=== PATIENT | female | born 1950 | race Caucasian/White ===

== ENCOUNTER → 2022-03-01 13:00 | Outpatient (BNVA) | payer MEDICARE, SELFPAY | PROVIDERS: PCP Internal Medicine; Visit Provider Psychiatry & Neurology Psychiatry | DX: F33.9 Major depressive disorder, recurrent, unspecified (principal); F41.1 Generalized anxiety disorder; F41.0 Panic disorder [episodic paroxysmal anxiety]; Z79.899 Other long term (current) drug therapy | CPT/HCPCS: 90833; 99212 ==

== ENCOUNTER 2022-08-23 11:08 | Outpatient (REF) | payer MEDICARE, SELFPAY ==
[2022-08-23 12:10] LABS: MANUAL DIFF FLAG NO
[2022-08-23 12:33] LABS: Basophils Absolute Auto 0.1 X10*3/uL (0.0-0.2); Basophils Percent Auto 1.1 % (0-2); Eosinophils Absolute Auto 0.6 X10*3/uL (0.0-0.4); Eosinophils Percent Auto 7.3 % (0-4); Hematocrit 40.4 % (37.0-47.0); Hemoglobin 13.3 g/dl (12.0-16.0); Imm Gran Abs Auto 0.04 X10*3/uL (0.00-0.03); Imm Gran Pct Auto 0.5 % (0.0-0.4); Lymphocytes Absolute Auto 1.8 X10*3/uL (1.2-4.9); Lymphocytes Percent Auto 22.1 % (20-40); Mean Corpuscular HGB Conc 32.9 g/dl (31.0-35.0); Mean Corpuscular Hemoglobin 29.1 pg (27.0-33.0); Mean Corpuscular Volume 88.4 fL (80.0-98.0); Monocytes Absolute Auto 0.7 X10*3/uL (0.1-1.2); Monocytes Percent Auto 8.2 % (2-11); Neutrophils Absolute Auto 4.8 x10*3/uL (2.0-8.3); Neutrophils Percent Auto 60.8 % (45-73); Platelet Count 248 X10*3/uL (160-400); Red Blood Count 4.57 X10*6/uL (4.20-5.50); Red Cell Distribution Width 14.3 % (11.0-16.0)
[2022-08-23 13:15] LABS: Iron 50 mcg/dL (30-160); Percent Iron Saturation 17 % (15-50); Total Iron Binding Capacity 290 mcg/dL (228-428); Unsaturated Iron Binding 240 ug/dL
[2022-08-23 13:44] LABS: Ferritin 45 ng/mL (10-250); Folate 10.5 ng/mL (> or = 4.0); Vitamin B12 620 pg/mL (200-900)
== END 2022-08-23 11:09 | disposition home or self-care (01) ==
LOC: HO.LAB 11:08
PROVIDERS: PCP Internal Medicine; Visit Provider Psychiatry & Neurology Psychiatry
DX: F32.4 Major depressive disorder, single episode, in partial remission (principal); F40.01 Agoraphobia with panic disorder; I10 Essential (primary) hypertension; J44.9 Chronic obstructive pulmonary disease, unspecified; D64.9 Anemia, unspecified
CPT/HCPCS: 36415; 82607; 82728; 82746; 83540; 84443; 85025; 90833; 99212

== ENCOUNTER → 2022-09-25 13:27 | Outpatient (BNVA) | payer MEDICARE, SELFPAY | PROVIDERS: PCP Internal Medicine; Visit Provider Psychiatry & Neurology Psychiatry | DX: I10 Essential (primary) hypertension (principal); J44.9 Chronic obstructive pulmonary disease, unspecified; F40.01 Agoraphobia with panic disorder; F32.4 Major depressive disorder, single episode, in partial remission; D64.9 Anemia, unspecified ==

== ENCOUNTER 2022-10-30 14:00 | Outpatient (AMB) | payer MEDICARE, SELFPAY ==
--- NOTE | 2022-10-30 14:14 | A.OFFPSYCH_ITS ---
Intake Vital Signs 10/30/22 15:03 BP 183/92 H Pulse 74 Intake Visit Reasons: depression Allergies No Known Allergies Allergy (Verified 09/25/22 13:43) Medication List - Last Reconciled 10/30/22 by Joe Chandler MD atorvastatin 20 mg PO DAILY budesonide-formoterol 160-4.5 mcg/actuation (Symbicort) 2 puffs inhalation buspirone 10 mg PO BID 90 days carvedilol 6.25 mg PO BID lisinopril 20 mg PO DAILY lorazepam 0.5 mg PO BID PRN sertraline 100 mg PO DAILY umeclidinium 62.5 mcg/actuation (Incruse Ellipta) 1 inh inhalation DAILY HPI- Psychiatric Chief Complaint: depression HPI Narrative: Patient seen in psychiatric follow-up. 72-year-old single female recently seen for worsening depression anxiety. BuSpar had been increased from 3 day to 20 mg twice a day L methyl folate added at 7.5 mg. Patient has been feeling somewhat better in spite of a recent fall. She has had pain over the last week or more has called her PCP who is seeing her in a couple of days. Did not go to urgent care has significant pain around her coccyx area. No unilateral weakness or feeling like she was blacking out. She has had some mild balance problems unclear if related to recent fall. Patient did recently celebrated the 40-year-old birthday of her niece she does feel only intermittently supported by her sister. No clear dizziness when standing up. The patient had been feeling significantly better doing daily walking less depressed S anxious after recent changes unable to increase Zoloft past 100 mg secondary to bruising Past Psychiatric History: Longstanding history of panic disorder generalized anxiety disorder and history of recurrent depression Has been more stable the past few years Mental Status Exam Mental Status Exam Narrative: Pain noted when sitting Patient Appearance: Well Grooomed Patient Orientation: Person, Place, Time and Situation Level of Consciousness: Awake and Appropriate Patient Behavior: Appropriate Mood Description: Apprehensive Affect Description: Appropriate and Constricted Patient Cognition Impaired: No Ability to Follow Directions: Good Speech Pattern: Clear Memory Description: Intact Hallucinations: None Delusions: Not Present Thought Process: Intact and Goal Oriented Thought Content: positive for Goal Oriented, positive for Preoccupation, negative for Suicidal Ideation or negative for Homicidal Ideation Depressive Symptoms: Increased Anxiety Judgement: Good Judgement and Insight: Somewhat discouraged by care at PCP encouraged to be an advocate for herself Assessment and Plan Assessment & Plan (1) Major depressive disorder in partial remission: Status: Acute Code(s): F32.4 - Major depressive disorder, single episode, in partial remission (2) Panic disorder with agoraphobia: Status: Acute Code(s): F40.01 - Agoraphobia with panic disorder Plan Patient has generally been doing well but did have a recent fall and had back pain was given a appointment for couple of weeks out and I encouraged the patient to get imaging did recommend urgent care here at [place] which does have radiology also offered to order films which I could send her PCP also discussed if she did have a spinal fracture there is acute treat from neuroradiology. Discussed lowering BuSpar which can at times contribute to balanced difficulty not noted with patient walking currently continue sertraline could start to switch to a different SSRI or SNRI given bruising Increase anxiety and pre panic increased discussed possibility of perhaps seeing therapist on more regular basis for period of time Medications: Changed From buspirone 20 mg (2 x 10 mg) PO BID 90 days 360 tabs 1RF To buspirone 10 mg PO BID 180 tabs 1RF 90 days Counseling and coordination of Care Pt. Self Management counseling: Behavior activation and Problem solving Details-Self Mgmt counseling: Discussion regarding self-care limitations of present healthcare model feelings of neglect Relaxation stress strategies Medication management counseling: Effectiveness and Side effects Diagnosis and Prognosis Counseling: Impact of diagnosis on life functions and Adequacy of current interventions Details: I spent [40] minutes reviewing the record, seeing the patient and documenting in the medical record. Counseling provided to the patient/caregiver as outlined below. Addressed patient/caregiver concerns regarding current medication regime including effective adherence. Addressed patient/caregiver concerns regarding diagnosis and prognosis including accuracy of diagnosis, prognosis over time, impact of diagnosis. Addressed patient/caregiver concerns regarding impact of recent stressors. 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
[2022-10-30 15:03] VITALS: BP 183/92; PULSE 74
== END 2022-10-30 17:08 | disposition home or self-care (01) ==
LOC: HO.HOP 14:01
PROVIDERS: PCP Internal Medicine; Visit Provider Psychiatry & Neurology Psychiatry
DX: F32.4 Major depressive disorder, single episode, in partial remission (principal); F40.01 Agoraphobia with panic disorder
CPT/HCPCS: 90833; 99213

== ENCOUNTER → 2022-10-30 14:00 | Outpatient (BNVA) | payer MEDICARE, SELFPAY | PROVIDERS: PCP Internal Medicine; Visit Provider Psychiatry & Neurology Psychiatry | DX: F32.4 Major depressive disorder, single episode, in partial remission (principal); F40.01 Agoraphobia with panic disorder | CPT/HCPCS: 90833; 99212 ==

== ENCOUNTER 2023-05-28 11:53 | Outpatient (AMB) | payer MEDICARE, SELFPAY ==
--- NOTE | 2023-05-28 12:56 | A.OFFPSYCH_ITS ---
Intake Intake Visit Reasons: depression Allergies No Known Allergies Allergy (Verified 09/25/22 13:43) Medication List - Last Reconciled 05/28/23 by Joe Chandler MD atorvastatin 20 mg PO DAILY budesonide-formoterol 160-4.5 mcg/actuation (Symbicort) 2 puffs inhalation buspirone 10 mg PO BID 90 days carvedilol 6.25 mg PO BID lisinopril 20 mg PO DAILY lorazepam 0.5 mg PO BID PRN lorazepam 0.5 mg PO BID PRN sertraline 100 mg PO DAILY umeclidinium 62.5 mcg/actuation (Incruse Ellipta) 1 inh inhalation DAILY HPI- Psychiatric Chief Complaint: depression HPI Narrative: Patient seen psychiatric follow-up has had an increase in anxiety dysphoria. Patient has been fed up with the medical system has felt unsupported by her primary care in different specialties. Did require recent wrist surgery after a fall. Has felt increasingly frustrated at times dealing with the healthcare system and feeling not supported by different offices and institutions. Mood generally okay has also felt not supported by her sister which was problematic and did not want to over burden her niece. No self-harming thoughts son may in crease in anxiety denies feeling balance issues related to BuSpar patient continues on sertraline BuSpar low-dose lorazepam Past Psychiatric History: Longstanding history of panic disorder generalized anxiety disorder and history of recurrent depression Has been more stable the past few years Mental Status Exam Mental Status Exam Narrative: Pain noted some dysphoria and irritability Patient Appearance: Well Grooomed Patient Orientation: Person, Place, Time and Situation Level of Consciousness: Awake and Appropriate Patient Behavior: Appropriate Mood Description: Apprehensive Affect Description: Constricted and Apprehensive Patient Cognition Impaired: No Ability to Follow Directions: Good Speech Pattern: Clear Memory Description: Intact Hallucinations: None Delusions: Not Present Thought Process: Intact and Goal Oriented Thought Content: positive for Goal Oriented, positive for Preoccupation, negative for Suicidal Ideation or negative for Homicidal Ideation Depressive Symptoms: Increased Anxiety Judgement: Good Judgement and Insight: Somewhat discouraged by care at PCP and different healthcare offices negotiating current healthcare system Assessment and Plan Assessment & Plan (1) Major depressive disorder in partial remission: Status: Acute Code(s): F32.4 - Major depressive disorder, single episode, in partial remission (2) Panic disorder with agoraphobia: Status: Acute Code(s): F40.01 - Agoraphobia with panic disorder Plan Patient does have depressive symptoms with irritability lot of this is situationally related had full with spinal injury number of months ago had other fall with a hand injury to left wrist that required surgery. Patient felt not supported by her sister not supported by her primary care. Discussed different strategies also discussed when she is going for PT working on balance and strengthening tissue to issues related to hand back. Discussed [facility] for help with diagnosis and pain management needs much reassurance empathic listening and support I did urge reconsideration of counseling however patient felt overwhelmed thought discuss she have to start over from beginning to deal with the help lindsay hanna current stressors and issues related to aging and family Counseling and coordination of Care Details-Self Mgmt counseling: Strategies related to current stressors including medical Details: I spent [45] minutes reviewing the record, seeing the patient and documenting in the medical record. Counseling provided to the patient/caregiver as outlined below. Addressed patient/caregiver concerns regarding current medication regime including effective adherence. Addressed patient/caregiver concerns regarding diagnosis and prognosis including accuracy of diagnosis, prognosis over time, impact of diagnosis. Addressed patient/caregiver concerns regarding impact of recent st ressors. 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
== END 2023-05-28 20:14 | disposition home or self-care (01) ==
LOC: HO.HOP 11:53
PROVIDERS: PCP Internal Medicine; Visit Provider Psychiatry & Neurology Psychiatry
DX: F32.4 Major depressive disorder, single episode, in partial remission (principal); F40.01 Agoraphobia with panic disorder
CPT/HCPCS: 90833; 99213

== ENCOUNTER → 2023-05-28 11:53 | Outpatient (BNVA) | payer MEDICARE, SELFPAY | PROVIDERS: PCP Internal Medicine; Visit Provider Psychiatry & Neurology Psychiatry | DX: F32.4 Major depressive disorder, single episode, in partial remission (principal); F40.01 Agoraphobia with panic disorder | CPT/HCPCS: 99212 ==

== ENCOUNTER 2023-09-03 11:55 | Outpatient (AMB) | payer MEDICARE, SELFPAY ==
--- NOTE | 2023-09-03 16:06 | A.OFFPSYCH_ITS ---
Intake Intake Visit Reasons: Depression Allergies No Known Allergies Allergy (Verified 09/25/22 13:43) HPI- Psychiatric Chief Complaint: Depression HPI Narrative: Patient having issues with chronic anxiety and dysphoria has felt disgusted by the medical system recent orthopedic issues that required surgery felt generally not supported. Some disquiet regarding a neighbor of hers who had recently patient has not wanted to go back and counseling has felt somewhat dependent on others but difficulty in long-term relationship with sister has not wanted to overly burden her niece has limited support system. Did have a good relationship with her prior therapist Dr. Oliveros has not wanted to as she sees it start over we have discussed use of supportive therapy not necessarily needing to go back to [facility] to take what she needs currently but she has been resistant to considering this. Past Psychiatric History: Longstanding history of panic disorder generalized anxiety disorder and history of recurrent depression Has been more stable the past few years Mental Status Exam Mental Status Exam Narrative: Has cast Patient Appearance: Well Grooomed Patient Orientation: Person, Place, Time and Situation Level of Consciousness: Awake and Appropriate Patient Behavior: Appropriate Mood Description: Constricted, Depressed and Apprehensive Affect Description: Constricted and Apprehensive Patient Cognition Impaired: No Ability to Follow Directions: Good Speech Pattern: Clear Memory Description: Intact Hallucinations: None Delusions: Not Present Thought Process: Intact and Goal Oriented Thought Content: positive for Goal Oriented, positive for Preoccupation, negative for Suicidal Ideation or negative for Homicidal Ideation Depressive Symptoms: Increased Anxiety, Increased Irritability and Loss of Int. in Activity Judgement: Fair Judgement and Insight: Somewhat discouraged by care at orthopedic some difficulty in asking for help Assessment and Plan Assessment & Plan (1) Major depressive disorder in partial remission: Status: Acute Code(s): F32.4 - Major depressive disorder, single episode, in partial remission (2) Panic disorder with agoraphobia: Status: Acute Code(s): F40.01 - Agoraphobia with panic disorder (3) Generalized anxiety disorder: Status: Acute Code(s): F41.1 - Generalized anxiety disorder Plan Patient might benefit from special education case manager if available through her system has been having more panic attacks continue lorazepam BuSpar sertraline discussed option mirtazapine did have increased ecchymosis at higher doses of sertraline would benefit from supportive counseling. Has been more anxious irritable not wanting to go to different appointments denies active self-harm basically overwhelmed at the current healthcare system and lack of support. Encourage telehealth therapy encourage online support groups Medications: Refilled lorazepam 0.5 mg PO BID PRN 30 tabs 1RF anxiety Counseling and coordination of Care Details-Self Mgmt counseling: Issues related to managing chronic anxiety healthcare system issues with family Medication management counseling: Effectiveness and Side effects Diagnosis and Prognosis Counseling: Adequacy of current interventions Details: I spent [38] minutes reviewing the record, seeing the patient and documenting in the medical record. Counseling provided to the patient/caregiver as outlined below. Addressed patient/caregiver concerns regarding current medication regime including effective adherence. Addressed patient/caregiver concerns regarding diagnosis and prognosis including accuracy of diagnosis, prognosis over time, impact of diagnosis. Addressed patient/caregiver concerns regarding impact of recent stressors. [facility] Medical History (Updated 10/28/23 @ 17:25 by Joe Chandler MD) Generalized anxiety disorder Major depressive disorder in partial remission Panic disorder with agoraphobia Pulmonary embolism Hypertension COPD (chronic obstructive pulmonary disease) Social History: sister and 1 brother mother depression anxiety niece TBI retired worked for [employer] Substance History: na Trauma History: unclear Coding Level of Care Code Est Pt Level 3 (28764) Therapy 30m w/E&M (48575) Diagnoses Major depressive disorder in partial remission F32.4 Panic disorder with agoraphobia F40.01 Generalized anxiety disorder F41.1
== END 2023-09-03 12:29 | disposition home or self-care (01) ==
LOC: HO.HOP 11:55
PROVIDERS: PCP Internal Medicine; Visit Provider Psychiatry & Neurology Psychiatry
DX: F32.4 Major depressive disorder, single episode, in partial remission (principal); F40.01 Agoraphobia with panic disorder; F41.1 Generalized anxiety disorder
CPT/HCPCS: 90833; 99213

== ENCOUNTER → 2023-09-03 11:55 | Outpatient (BNVA) | payer MEDICARE, SELFPAY | PROVIDERS: PCP Internal Medicine; Visit Provider Psychiatry & Neurology Psychiatry | DX: F32.4 Major depressive disorder, single episode, in partial remission (principal); F40.01 Agoraphobia with panic disorder; F41.1 Generalized anxiety disorder | CPT/HCPCS: 99212 ==

== ENCOUNTER 2023-11-22 10:29 | Outpatient (AMB) | payer MEDICARE, SELFPAY ==
--- NOTE | 2023-11-22 11:35 | A.OFFPSYCH_ITS ---
Intake Intake Visit Reasons: Depression Allergies No Known Allergies Allergy (Verified 09/25/22 13:43) Medication List - Last Reconciled 12/09/23 by Joe Chandler MD atorvastatin 20 mg PO DAILY budesonide-formoterol 160-4.5 mcg/actuation (Symbicort) 2 puffs inhalation buspirone 10 mg PO BID 90 days carvedilol 6.25 mg PO BID lisinopril 20 mg PO DAILY lorazepam 0.5 mg PO BID PRN lorazepam 0.5 mg PO BID PRN sertraline 100 mg PO DAILY umeclidinium 62.5 mcg/actuation (Incruse Ellipta) 1 inh inhalation DAILY HPI- Psychiatric Chief Complaint: Depression HPI Narrative: Patient seen in psychiatric follow-up has been dealing with some degree of chronic anxiety and dysphoria. Has been particularly alienated with sister and 1 of her nieces recently and particularly not wanting to burden a niece patient tends to ruminate and dysphoric Past Psychiatric History: Longstanding history of panic disorder generalized anxiety disorder and history of recurrent depression Has been more stable the past few years Assessment and Plan Assessment & Plan (1) Generalized anxiety disorder: Status: Acute Code(s): F41.1 - Generalized anxiety disorder (2) Major depressive disorder in partial remission: Status: Acute Code(s): F32.4 - Major depressive disorder, single episode, in partial remission (3) Panic disorder with agoraphobia: Status: Acute Code(s): F40.01 - Agoraphobia with panic disorder Plan Continue plan of care different treatment options offered patient did not wish to make any changes also discussed option of seeing someone given current stressors on a more regular basis for ongoing psychotherapy patient did not want referrals Counseling and coordination of Care Pt. Self Management counseling: Cognitive restructuring and General coping skills Medication management counseling: Effectiveness, Side effects and Dosing range Diagnosis and Prognosis Counseling: Adequacy of current interventions Details: I spent [38] minutes reviewing the record, seeing the patient and documenting in the medical record. Counseling provided to the patient/caregiver as outlined below. Addressed patient/caregiver concerns regarding current medication regime including effective adherence. Addressed patient/caregiver concerns regarding diagnosis and prognosis including accuracy of diagnosis, prognosis over time, impact of diagnosis. Addressed patient/caregiver concerns regarding impact of recent stressors. [facility] Medical History (Updated 10/28/23 @ 17:25 by Joe Chandler MD) Generalized anxiety disorder Major depressive disorder in partial remission Panic disorder with agoraphobia Pulmonary embolism Hypertension COPD (chronic obstructive pulmonary disease) Social History: sister and 1 brother mother depression anxiety niece TBI retired worked for [employer] Substance History: na Trauma History: unclear Coding Level of Care Code Est Pt Level 3 (47482) Therapy 30m w/E&M (70629) Diagnoses Generalized anxiety disorder F41.1 Major depressive disorder in partial remission F32.4 Panic disorder with agoraphobia F40.01
== END 2023-11-22 11:17 | disposition home or self-care (01) ==
LOC: HO.HOP 10:29
PROVIDERS: PCP Internal Medicine; Visit Provider Psychiatry & Neurology Psychiatry
DX: F41.1 Generalized anxiety disorder (principal); F32.4 Major depressive disorder, single episode, in partial remission; F40.01 Agoraphobia with panic disorder
CPT/HCPCS: 90833; 99213

== ENCOUNTER → 2023-11-22 10:29 | Outpatient (BNVA) | payer MEDICARE, SELFPAY | PROVIDERS: PCP Internal Medicine; Visit Provider Psychiatry & Neurology Psychiatry | DX: F41.1 Generalized anxiety disorder (principal); F32.4 Major depressive disorder, single episode, in partial remission; F40.01 Agoraphobia with panic disorder | CPT/HCPCS: 99212 ==

== ENCOUNTER 2024-01-24 11:00 | Outpatient (AMB) | payer MEDICARE, SELFPAY ==
--- NOTE | 2024-01-24 11:43 | MHC.OFFVISPS ---
Intake Intake Visit Reasons: depression Allergies No Known Allergies Allergy (Verified 09/25/22 13:43) HPI- Psychiatric Chief Complaint: depression Intake Note: HPI Narrative: Pt seen in f/u mood has been anxious somewhat ruminating PHQ-9 and ABIGAIL are not reliable patient more symptomatic Tends to ruminate regarding her sister and niece her sister is chronically anxious and dysphoric patient tends to be her sounding board. Past Psychiatric History: Longstanding history of panic disorder generalized anxiety disorder and history of recurrent depression Has been more stable the past few years Mental Status Exam Mental Status Exam Narrative: Has cast Patient Appearance: Well Grooomed Patient Orientation: Person, Place, Time and Situation Level of Consciousness: Awake and Appropriate Patient Behavior: Appropriate Mood Description: Anxious and Apprehensive Affect Description: Constricted and Apprehensive Patient Cognition Impaired: No Ability to Follow Directions: Good Speech Pattern: Clear Memory Description: Intact Hallucinations: None Delusions: Not Present Thought Process: Intact and Goal Oriented Thought Content: positive for Goal Oriented, positive for Preoccupation, negative for Suicidal Ideation or negative for Homicidal Ideation Depressive Symptoms: Increased Anxiety, Increased Irritability and Loss of Int. in Activity Judgement: Fair Judgement and Insight: Somewhat discouraged by care at orthopedic some difficulty in asking for help Assessment and Plan Assessment & Plan (1) Panic disorder with agoraphobia: Status: Acute Code(s): F40.01 - Agoraphobia with panic disorder (2) Major depressive disorder in partial remission: Status: Acute Code(s): F32.4 - Major depressive disorder, single episode, in partial remission (3) Generalized anxiety disorder: Status: Acute Code(s): F41.1 - Generalized anxiety disorder Plan Increase BuSpar to 15 b.i.d. for augmentation of sertraline warned regarding balance potential side effects hopefully will help with mood ruminations frequent preoccupations that interfere with quality of life did not wish to consider any other medication changes. Has lorazepam 0.5 b.i.d. he p.r.n. that she has taken often on Medications: Changed From buspirone 10 mg PO BID 90 days 180 tabs 1RF To buspirone 15 mg (1.5 x 10 mg) PO BID 270 tabs 1RF 90 days Counseling and coordination of Care Details-Self Mgmt counseling: Issues related to managing with family intrusive concerns balancing needs Medication management counseling: Effectiveness, Side effects and Dosing range Diagnosis and Prognosis Counseling: Problematic behaviors secondary to diagnosis and Adequacy of current interventions Details: I spent [30] minutes reviewing the record, seeing the patient and documenting in the medical record. Counseling provided to the patient/caregiver as outlined below. Addressed patient/caregiver concerns regarding current medication regime including effective adherence. Addressed patient/caregiver concerns regarding diagnosis and prognosis including accuracy of diagnosis, prognosis over time, impact of diagnosis. Addressed patient/caregiver concerns regarding impact of recent stressors. [facility] Medical History (Updated 10/28/23 @ 17:25 by Joe Chandler MD) Generalized anxiety disorder Major depressive disorder in partial remission Panic disorder with agoraphobia Pulmonary embolism Hypertension COPD (chronic obstructive pulmonary disease) Social History: sister and 1 brother mother depression anxiety niece TBI retired worked for [employer] (acquired by [employer] in 2014) Substance History: na Trauma History: unclear Coding Level of Care Code Est Pt Level 4 (63905) Diagnoses Panic disorder with agoraphobia F40.01 Major depressive disorder in partial remission F32.4 Generalized anxiety disorder F41.1
== END 2024-01-24 11:42 | disposition home or self-care (01) ==
LOC: HO.HOP 11:00
PROVIDERS: PCP Internal Medicine; Visit Provider Psychiatry & Neurology Psychiatry
DX: F40.01 Agoraphobia with panic disorder (principal); F32.4 Major depressive disorder, single episode, in partial remission; F41.1 Generalized anxiety disorder
CPT/HCPCS: 99214

== ENCOUNTER → 2024-01-24 11:00 | Outpatient (BNVA) | payer MEDICARE, SELFPAY | PROVIDERS: PCP Internal Medicine; Visit Provider Psychiatry & Neurology Psychiatry | DX: F40.01 Agoraphobia with panic disorder (principal); F32.4 Major depressive disorder, single episode, in partial remission; F41.1 Generalized anxiety disorder; Z71.89 Other specified counseling | CPT/HCPCS: 99212 ==

== ENCOUNTER 2024-02-28 10:52 | Outpatient (AMB) | payer MEDICARE, SELFPAY ==
--- NOTE | 2024-02-28 11:18 | A.OFFPSYCH_ITS ---
Intake Intake Visit Reasons: depression Allergies No Known Allergies Allergy (Verified 09/25/22 13:43) HPI- Psychiatric Chief Complaint: depression HPI Narrative: Pt seen in f/u mood seems more stable has chronic issues with her sister who feels under a dark cloud has had to decxrease buspirone secondary to gait instability. Patient basically doing okay. No new medical symptoms future oriented patient with some bruising . She remains on sertraline and BuSpar. Patient has been preoccupied with her sister Past Psychiatric History: Longstanding history of panic disorder generalized anxiety disorder and history of recurrent depression Has been more stable the past few years Mental Status Exam Mental Status Exam Patient Appearance: Well Grooomed Patient Orientation: Person, Place, Time and Situation Level of Consciousness: Awake and Appropriate Patient Behavior: Appropriate Mood Description: Apprehensive Affect Description: Apprehensive Patient Cognition Impaired: No Ability to Follow Directions: Good Speech Pattern: Clear Memory Description: Intact Hallucinations: None Delusions: Not Present Thought Process: Intact and Goal Oriented Thought Content: positive for Goal Oriented, positive for Preoccupation, negative for Suicidal Ideation or negative for Homicidal Ideation Depressive Symptoms: Increased Anxiety Judgement: Good Judgement and Insight: Able to discuss how to try and avoid being in emotional sponge for her sister's negative thinking Assessment and Plan Assessment & Plan (1) Generalized anxiety disorder: Status: Acute Code(s): F41.1 - Generalized anxiety disorder (2) Panic disorder with agoraphobia: Status: Acute Code(s): F40.01 - Agoraphobia with panic disorder (3) Major depressive disorder in partial remission: Status: Acute Code(s): F32.4 - Major depressive disorder, single episode, in partial remission Plan Patient is generally stable her anxiety seems in better control not overly depressed or anxious. Medically she seems more stable and BuSpar has been lowered to 10 mg twice a day at higher doses was causing increased bruising and gait disturbance. Dealing with boundary and chronic issues related to her niece and sister her sister tends to be quite negativistic and reactive and at times the patient can act as an emotional sponge discussed issues related to boundari es she did also review and discuss cognitive disorder workbook that she was given to review. Lorazepam is used occasionally 0.5 mg generally only once in the evening couple of times a week. Sertraline continues at 100 mg is not tolerate higher doses we have discussed switching anti depressants because of tolerability and bruising at higher doses but patient feels adequately maintained at this time. Follow-up 3 weeks Medications: Changed From buspirone 15 mg (1.5 x 10 mg) PO BID 90 days 270 tabs 1RF To buspirone 10 mg PO BID 180 tabs 1RF 90 days Counseling and coordination of Care Pt. Self Management counseling: Breathing Details-Self Mgmt counseling: Issues related to be family dealing with her sister niece issues related to boundaries becoming an emotional sponge for negativistic attitude/behavior Medication management counseling: Effectiveness, Side effects and Dosing range Diagnosis and Prognosis Counseling: Impact of diagnosis on life functions and Adequacy of current interventions Details: I spent [38] minutes reviewing the record, seeing the patient and documenting in the medical record. Counseling provided to the patient/caregiver as outlined below. Addressed patient/caregiver concerns regarding current medication regime including effective adherence. Addressed patient/caregiver concerns regarding diagnosis and prognosis including accuracy of diagnosis, prognosis over time, impact of diagnosis. Addressed patient/caregiver concerns regarding impact of recent stressors. 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
== END 2024-02-28 14:59 | disposition home or self-care (01) ==
LOC: HO.HOP 10:52
PROVIDERS: PCP Internal Medicine; Visit Provider Psychiatry & Neurology Psychiatry
DX: F41.1 Generalized anxiety disorder (principal); F40.01 Agoraphobia with panic disorder; F32.4 Major depressive disorder, single episode, in partial remission
CPT/HCPCS: 90833; 99213

== ENCOUNTER → 2024-02-28 10:52 | Outpatient (BNVA) | payer MEDICARE, SELFPAY | PROVIDERS: PCP Internal Medicine; Visit Provider Psychiatry & Neurology Psychiatry | DX: F41.1 Generalized anxiety disorder (principal); F40.01 Agoraphobia with panic disorder; F32.4 Major depressive disorder, single episode, in partial remission; Z71.89 Other specified counseling | CPT/HCPCS: 99212 ==

== ENCOUNTER 2024-06-03 13:14 | Outpatient (AMB) | payer MEDICARE, SELFPAY ==
--- NOTE | 2024-06-03 14:02 | A.OFFPSYCH_ITS ---
Intake Intake Visit Reasons: depression Allergies No Known Allergies Allergy (Verified 09/25/22 13:43) Medication List - Last Reconciled 06/03/24 by Joe Chandler MD atorvastatin 20 mg PO DAILY budesonide-formoterol 160-4.5 mcg/actuation (Symbicort) 2 puffs inhalation buspirone 10 mg PO BID 90 days carvedilol 6.25 mg PO BID lisinopril 20 mg PO DAILY lorazepam 0.5 mg PO BID PRN lorazepam 0.5 mg PO BID PRN sertraline 100 mg PO DAILY umeclidinium 62.5 mcg/actuation (Incruse Ellipta) 1 inh inhalation DAILY HPI- Psychiatric Chief Complaint: depression HPI Narrative: Patient seen psychiatric follow-up. Patient's mood somewhat anxious and ruminative at times. Tends to get overwhelmed at times with family stressors medical concerns. Has a somewhat limited support system does not want ask her knees her sister for help at times. Continues on sertraline and BuSpar we have discussed seeing therapist to help in manage anxiety difficulties but the patient has not wanted to do that. Feels relatively stable on sertraline and BuSpar Ativan at HS Past Psychiatric History: Longstanding history of panic disorder generalized anxiety disorder and history of recurrent depression Has been more stable the past few years Mental Status Exam Mental Status Exam Patient Appearance: Well Grooomed Patient Orientation: Person, Place, Time and Situation Level of Consciousness: Awake and Appropriate Patient Behavior: Appropriate Mood Description: Apprehensive Affect Description: Apprehensive Patient Cognition Impaired: No Ability to Follow Directions: Good Speech Pattern: Clear Memory Description: Intact Hallucinations: None Delusions: Not Present Thought Process: Intact and Goal Oriented Thought Content: positive for Goal Oriented, positive for Preoccupation, negative for Suicidal Ideation or negative for Homicidal Ideation Depressive Symptoms: Increased Anxiety Judgement: Good Judgement and Insight: Able to discuss how to try and avoid being in emotional sponge for her sister's negative thinking Assessment and Plan Assessment & Plan (1) Panic disorder with agoraphobia: Status: Acute Code(s): F40.01 - Agoraphobia with panic disorder (2) Major depressive disorder in partial remission: Status: Acute Code(s): F32.4 - Major depressive disorder, single episode, in partial remission (3) Generalized anxiety disorder: Status: Acute Code(s): F41.1 - Generalized anxiety disorder Plan Continue BuSpar and sertraline encourage relaxation skills encourage CBT skills Medications: Refilled buspirone 10 mg PO BID 180 tabs 1RF 90 days sertraline 100 mg PO DAILY 90 tabs 1RF Counseling and coordination of Care Pt. Self Management counseling: Breathing and Cognitive restructuring Diagnosis and Prognosis Counseling: Impact of diagnosis on life functions and Adequacy of current interventions Details-Diagnosis/Prognosis counseling: Patient feels comfortable on current regimen does not wish to explore alternatives Details: I spent [38] minutes reviewing the record, seeing the patient and documenting in the medical record. Counseling provided to the patient/caregiver as outlined below. Addressed patient/caregiver concerns regarding current medication regime including effective adherence. Addressed patient/caregiver concerns regarding diagnosis and prognosis including accuracy of diagnosis, prognosis over time, impact of diagnosis. Addressed patient/caregiver concerns regarding impact of recent stressors. 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
--- OUTSIDE RECORDS SUMMARY | 2024-06-03 14:22 | XMS_ITS | Clinical Summary ---
Author Organization [facility] Address [address] [place] [address] Care Team Providers Care Interior Assemblies Developer Prover Name Role Phone Cesar Grimes MD Primary Care Provider [phone] Allergies No known active allergies Medications Medication Sig Dispensed Refills Start Date End Date Status lansoprazole (PREVACID) 15 MG capsule Take 15 mg by mouth daily. 0 Active sertraline (ZOLOFT) 100 MG tablet Take 100 mg by mouth daily. 0 Active albuterol 108 (90 Base) MCG/ACT inhaler Inhale 2 puffs into the lungs every 6 (six) hours as needed. 0 Active LORazepam (ATIVAN) 0.5 MG tablet Take 0.5 mg by mouth every 6 (six) hours as needed. 0 Active busPIRone (BUSPAR) 10 MG tablet Take 10 mg by mouth 3 (three) times a day. 0 Active lisinopril (PRINIVIL,ZESTRIL) tablet 10 mg Take 10 mg by mouth daily. 0 Active budesonide-formotero l (SYMBICORT) 160-4.5 MCG/ACT inhaler Inhale 2 inhalations into the lungs 2 (two) times a day. 0 Active Umeclidinium [place] 62.5 MCG/INH AEPB Inhale into the lungs. 0 Active carvedilol (COREG) 6.25 MG tablet Take by mouth 2 (two) times a day with meals. 0 Active Active Problems No known active problems Family History Medical History Relation Name Comments Hypertension Brother Cancer Father Throat Cancer Cancer Mother Colon Cancer Cancer Paternal Aunt Breast Cancer Heart disease Sister Hypertension Sister Relation Name Status Comments Brother Alive Father (Age 90) Complicati ons from fall Mother (Age 66) Passed fro m the Cancer Paternal Aunt (Age 60) Breast Ca ncer Sister Alive Social History Tobacco Use Types Packs/Day Years Used Date Smoking Tobacco: Never Smokeless Tobacco: Never Alcohol Use Standard Drinks/Week Comments Never 0 (1 standard drink = 0.6 oz pur e alcohol) Sex and Gender Information Value Date Recorded Sex Assigned at Not on file Gender Identity Not on file Sexual Orientation Not on file Job Start Date Occupation Industry Not on file Not on file Not on file Last Filed Vital Signs Vital Sign Reading Time Taken Comments Blood Pressure 155/74 08/06/2020 11:07 AM EDT Pulse 90 08/06/2020 11:07 AM EDT Temperature 36.4 ??C (97.6 ??F) 08/06/2020 11:07 AM E DT Respiratory Rate - - Oxygen Saturation 98% 08/06/2020 11:07 AM EDT Inhaled Oxygen Concentration - - Weight 73.5 kg (162 lb) 08/06/2020 11:07 AM EDT Height 154.9 cm (5' 1 ) 08/06/2020 11:07 AM EDT Body Mass Index 30.61 08/06/2020 11:07 AM EDT Plan of Treatment Health Maintenance Due Date Last Done Comments Hepatitis C Screening 1950 COVID-19 Vaccine (#1) 02/14/1951 Depression Screening 1960 Preventative Health Evaluation 1966 Colon Cancer Screening (Colonoscopy) 1993 Shingrix-Zoster Vaccine (1 o f 2) 1998 Fall Risk Assessment 2013 Osteoporosis Screening (DEXA Scan) 2013 Pneumococcal Vaccine (2 of 2 - PCV) 2013 07/12/2011 RSV Adult > 60+ Yrs or (1 - 1-dose 75+ series) 08/16/2023 DTap / Tdap / Td (3 - Td or Tdap) 08/20/2023 08/19/2013, 11/16/2012 Influenza Vaccine (#1) 2023 Hepatitis B Vaccines Aged Out No long er eligible based on patient's age to complete this topic RSV Ped < 20 months Aged Out No longe r eligible based on patient's age to complete this topic Care Teams Interior Assemblies Developer Prover Relationship Specialty Start Date End Date Cesar Grimes MD [address] [facility] [address] [place] [address] PCP - General Gastroenterology 07/20/20
--- OUTSIDE RECORDS SUMMARY | 2024-06-03 14:22 | XMS_ITS ---
Care Plan - [facility] Created on: June 03, 2024 Jayda Montesinos : 1950 Sex: Female Author Organization [facility] Address [address] [place] [address] Phone Care Team Providers Care Cane Feeder Name Role Phone Calli SERRA, Elvira Primary Care Provider [phone] [facility] Unavailable [phone]
--- OUTSIDE RECORDS SUMMARY | 2024-06-03 14:22 | XMS_ITS | Clinical Summary ---
Author Organization 175 [facility] Address [address] [place] [address] Phone Care Team Providers Care Flexible Machining System Machinist Name Role Phone Elvira Mccurdy MD Primary Care Provider [phone] Allergies No known active allergies Medications levomefolate calcium (L-METHYLFOLATE ORAL) L-Methylfola te-Methylcob alamin 15-2 MG Cap Take by mouth. 11/02/2022 Active albuterol HFA (PROAIR HFA ; PROVENTIL HFA ; VENTOLIN HFA) 90 mcg/actuation inhaler Inhale 2 Puffs into the lungs every 6 hours as needed for Cough or Wheezing. 09/01/2019 Active atorvastatin (LIPITOR) 20 mg tablet TAKE 1 TABLET BY MOUTH EVERY DAY 06/13/2023 Active busPIRone (BUSPAR) 10 mg tablet Take 1 Tablet by mouth 2 times daily. 2 tabs in the morning & 1 tab in the evening 11/02/2022 Active carvediloL (COREG) 6.25 mg tablet TAKE 1 TABLET BY MOUTH EVERY 12 HOURS 02/03/2024 Active fluticasone-ume clidinium-vilan terol (Trelegy Ellipta) 100-62.5-25 mcg inhaler Inhale into the lungs. 11/02/2022 Active lansoprazole (PREVACID) [address] capsule Take 1 Cap by mouth every morning (before breakfast). Active lisinopriL (PRINIVIL,ZESTR IL) 30 mg tablet Take 1 Tablet by mouth daily. 09/26/2023 Active LORazepam (ATIVAN) 0.5 mg tablet 1 Tablet 2 times daily. PRN 11/13/2014 Active sertraline (ZOLOFT) 100 mg tablet 100 mg daily. 05/20/2013 Active amLODIPine (NORVASC) 5 mg tablet TAKE 1 TABLET BY MOUTH EVERY DAY 90 tablet 2 04/21/2024 Active Active Problems Problem Noted Date Diagnosed Date Left wrist fracture, sequela 05/05/2023 Closed fracture of left distal radius 03/29/2023 Shortness of breath 09/26/2021 Overview (02/27/2024): Last Assessment & Plan: Patient reports fatigue and exertional shortness of breath. We will repeat an exercise nuclear stress test to assess for any evidence of ischemia. I will notify her of results when available. She also has COPD which could be causing the symptoms. Systolic heart failure 05/06/2020 Overview (02/27/2024): Last Assessment & Plan: Patient with recent echocardiogram 08/04/20 and recovered LVEF. Continue with Coreg and lisinopril as prescribed. She is euvolemic on exam. I have reviewed with the patient to call if she develops worsening symptoms of heart failure such as increased shortness of breath, new or worsening cough, increased swelling, or weight gain of more than 2 lbs in one day or 4 lbs in one week. We will repeat an echocardiogram in 6 months to asses her heart function and valve disease. Stevenson's esophagus 08/06/2017 Hypercholesterolemia 08/06/2017 Overview (02/27/2024): Last Assessment & Plan: Last LDL 53. Continue atorvastatin. Hypertension 08/06/2017 Overview (02/27/2024): Last Assessment & Plan: Her blood pressure was elevated in the office today and upon recheck, however she reports she did not take her medications this am. Tolerating present therapies. Continue lisinopril and carvedilol. She has a blood pressure cuff at home and will take her blood pressure a few times this week 2 hrs after taking her medications and let us know if her BP stays >140/90. I discussed the importance of heart healthy lifestyle including low salt low fat diet, maintaining healthy weight, regular exercise, and not smoking. Anxiety 09/08/2016 COPD (chronic obstructive pulmonary disease) Hyperparathyroidism 08/31/2016 Benign paroxysmal positional vertigo 11/27/2014 Allergic rhinitis 08/28/2014 GERD (gastroesophageal reflux disease) 5 Actinic keratosis 12/11/2013 Adrenal adenoma 11/18/2013 Alopecia 09/02/2012 Insomnia 04/24/2012 Meralgia paresthetica 11/01/2010 Encounters Date Type Department Care Team Description 04/02/2024 9:00 AM EST Office Visit Internal Medicine - [facility] [address] [place] [address] Elvira Mccurdy MD Primary hypertension (Primary Dx); Screening for colorectal cancer; Chronic systolic heart failure (CMS/HCC); Hypercholesterolemia; Chronic obstructive pulmonary disease, unspecified COPD type (CMS/HCC) from Last 3 Months Immunizations Name Administration Dates Next Due DTaP (Infanrix) 6wks to less than 7yo 08/19/2013 Influenza, Unspecified 01/20/2021 Pneumococcal polysaccharide 23 valent (Pneumovax 23) 2yo and older 07/12/2011 Tdap Tetanus diptheria acell ular pertussis (Boostrix; Adacel) 7yo and older 11/16/2012 Surgical History Surgery Date Site/Laterality Comments OTHER SURGICAL HISTORY PROCEDURE: HISTORY OTHER; COMMENT: Renny fundoplication COLONOSCOPY 07/07/2008 PROCEDURE: HISTORICAL COLONOSCOPY; COMMENT: Diverticulosis. Repeat 10 yrs UPPER GASTROINTESTINAL ENDOSCOPY 01/28/2015 PROCEDURE: UT UPPER GI ENDOSCOPY PERFORMED; COMMENT: Stevenson's mucosa w/ focal intestinal metaplasia negative for dysplasia, Rpt 3 yrs Medical History Medical History Date Comments History of pulmonary embolus (PE) 08/06/2017 DX:History of pulmonary embolus (PE) Actinic keratosis 12/11/2013 DX:Actinic ker atosis Adrenal adenoma 11/18/2013 DX:Adrenal adeno ma Allergic rhinitis 08/28/2014 DX:Allergic rh initis Alopecia 09/02/2012 DX:Alopecia Anxiety 09/08/2016 DX:Anxiety Stevenson's esophagus 08/06/2017 DX:Stevenson's esophagus Benign paroxysmal positional vertigo 11/27/2014 DX:Benign paroxysmal positional vertigo GERD (gastroesophageal reflux disease) 05/29/2014 DX:GERD (gastroesophageal reflux disease) Hypercholesterolemia 08/06/2017 DX:Hypercho lesterolemia Hyperparathyroidism (CMS/HCC) 08/31/2016 DX :Hyperparathyroidism ([facility]) Hypertension 08/06/2017 DX:Hypertension Insomnia 04/24/2012 DX:Insomnia Meralgia paresthetica 11/01/2010 DX:Meralgi a paresthetica COPD (chronic obstructive pu lmonary disease) ([facility]) 09/08/2016 DX:COPD (chronic obstructive pulmonary disease) ([facility]) Family History Medical History Relation Name Comments Hypertension Brother Colon cancer Mother Heart attack Mother Coronary artery disease Sister Hypertension Sister Relation Name Status Comments Brother Mother Sister Social History Tobacco Use Types Packs/Day Years Used Date Smoking Tobacco: Never Smokeless Tobacco: Never Alcohol Use Standard Drinks/Week Comments No 0 (1 standard drink = 0.6 oz pur e alcohol) Comments Unknown Sex and Gender Information Value Date Recorded Sex Assigned at Not on file Legal Sex Female 4:11 AM EST Gender Identity Not on file Sexual Orientation Not on file Obstetrics History Last Filed Vital Signs Vital Sign Reading Time Taken Comments Blood Pressure 122/80 04/02/2024 9:08 AM EST Pulse 96 04/02/2024 9:08 AM EST Temperature 36.4 ??C (97.5 ??F) 04/02/2024 9:08 AM ES T Respiratory Rate - - Oxygen Saturation 96% 04/02/2024 9:08 AM EST Inhaled Oxygen Concentration - - Weight 74 kg (163 lb 3.2 oz) 04/02/2024 9:08 AM EST Height 152.4 cm (5') 04/02/2024 9:08 AM EST Body Mass Index 31.87 04/02/2024 9:08 AM EST Plan of Treatment Upcoming Encounters Date Type Department Care Team (Late st Contact Info) Description 08/26/2024 8:20 AM EDT Office Visit [facility] [address] [phone] Gregory Acosta MD [address] [address] 08/27/2024 9:30 AM EDT Appointment [facility] [address] [place] [phone] Cesar Grimes MD [address] [address] 10/02/2024 8:30 AM EDT Office Visit Internal Medicine - [facility] [address] [phone] Elvira Mccurdy MD [address] [address] Health Maintenance Due Date Last Done Comments Zoster Vaccines (1 of 2) 08/16/1967 DTaP,Tdap,and Td Vaccines (3 - Td or Tdap) 02/18/2014 08/19/2013, 11/16/2012 Pneumococcal Vaccine: 50+ Years (3 of 3 - PPSV23, PCV20 or PCV21) 03/20/2018 01/23/2018, 07/12/2011 COVID-19 Vaccine (2 - Pfizer risk series) 07/18/2020 06/27/2020 Hepatitis C Screening 04/01/2022 Osteoporosis Screening (Bone Density Screening) 04/01/2022 Social Influencers of Health Screening 04/01/2022 RSV Immunization Patients 60+ Years Old (1 - 1-dose 75+ series) 08/16/2023 Colorectal Cancer Screening: Colonoscopy 09/25/2023 09/24/2018 Influenza Vaccine (#1) 2023 , 02/04/2020, 04/30/2019, Additional history exists Depression Screening 09/25/2024 09/26/2023 Falls Risk Assessment 09/25/2024 09/26/2023 Medicare Annual Wellness Visit 09/25/2024 09/26/2023 Hypertension/CHF/CAD Annual BMP Blood Test 04/02/2025 04/02/2024, 09/27/2023, 09/27/2023 Cholesterol Screening (Lipid Panel) 04/02/2029 04/02/2024, 09/27/2023, 09/27/2023 HIB Vaccines Aged Out No longer eligi ble based on patient's age to complete this topic HPV Vaccines Aged Out No longer eligi ble based on patient's age to complete this topic Hepatitis A Vaccines Aged Out No long er eligible based on patient's age to complete this topic Hepatitis B Vaccines Aged Out No long er eligible based on patient's age to complete this topic IPV Vaccines Aged Out No longer eligi ble based on patient's age to complete this topic MMR Vaccines Aged Out No longer eligi ble based on patient's age to complete this topic Meningococcal ACWY Vaccine Aged Out N o longer eligible based on patient's age to complete this topic Meningococcal B Vacine Aged Out No lo nger eligible based on patient's age to complete this topic RSV Immunization Patients Under 20 months Aged Out No longer eligible based on patient's age to complete this topic Varicella Vaccines Aged Out No longer eligible based on patient's age to complete this topic Procedures Procedure Name Priority Date/Time Associated Diagnosis Comments COMPREHENSIVE METABOLIC PANEL Routine 04/02/2024 9:47 AM EST Screening for colorectal cancer Chronic systolic heart failure (CMS/HCC) Hypercholesterolemia Primary hypertension LIPID PANEL WITH REFLEX TO DIRECT LDL Routine 04/02/2024 9:47 AM EST Screening for colorectal cancer Chronic systolic heart failure (CMS/HCC) Hypercholesterolemia Primary hypertension DEPRESSION SCREENING Routine 09/26/2023 FALLS RISK ASSESSMENT Routine 09/26/2023 COLONOSCOPY Routine 09/24/2018 from Last 3 Months or Most Recently Relevant to Health Maintenance Results * Lipid panel with reflex to direct LDL (04/02/2024 9:47 AM EST) Cholesterol 155 0 - 200 mg/dL LAB CHEMISTRY METHOD 04/02/2024 3:10 PM EST [facility] Triglycerides 107 0 - 150 mg/dL LAB CHEMISTRY METHOD 04/02/2024 3:10 PM EST [facility] HDL 73 >=40 mg/dL LAB CHEMISTRY METHOD 04/02/2024 3:10 PM EST [facility] LDL Calculated 61 0 - 100 mg/dL LAB CHEMISTRY METHOD 04/02/2024 3:10 PM EST [facility] VLDL Cholesterol Bi 21.4 mg/dL LAB CHEMISTRY METHOD 04/02/2024 3:10 PM EST [facility] Non HDL Chol. (LDL+VLDL) 82 <145 mg/dL LAB CHEMISTRY METHOD 04/02/2024 3:10 PM EST [facility] Chol/HDL Ratio 2.1 0.0 - 4.4 LAB CHEMISTRY METHOD 04/02/2024 3:10 PM [facility] Blood Venous blood specimen / Unknown Venipuncture / Unknown 04/02/2024 9:47 AM EST 04/02/2024 9:47 AM EST us Elvira Mccurdy MD LAB BLOOD ORDERABLES Final Res ult [facility] [address] [place] [address], [place] [phone] * (ABNORMAL) Comprehensive metabolic panel (04/02/2024 9:47 AM EST) Sodium 139 133 - 145 mmol/L LAB CHEMISTRY METHOD 04/02/2024 3:16 PM [facility] Potassium 4.4 3.5 - 5.5 mmol/L LAB CHEMISTRY METHOD 04/02/2024 3:16 PM [facility] Chloride 107 96 - 110 mmol/L LAB CHEMISTRY METHOD 04/02/2024 3:16 PM [facility] CO2 26 21 - 32 mmol/L LAB CHEMISTRY METHOD 04/02/2024 3:16 PM [facility] Anion Gap 6 3 - 11 LAB CHEMISTRY METHOD 04/02/2024 3:16 PM [facility] Glucose 86 70 - 100 mg/dL LAB CHEMISTRY METHOD 04/02/2024 3:16 PM [facility] BUN 16 5 - 25 mg/dL LAB CHEMISTRY METHOD 04/02/2024 3:16 PM [facility] Creatinine 0.92 0.50 - 1.10 mg/dL LAB CHEMISTRY METHOD 04/02/2024 3:16 PM [facility] eGFR 65 >=60 mL/min/1. 73m2 LAB CHEMISTRY METHOD 04/02/2024 3:16 PM [facility] Comment:Calculation based on the??Chronic Kidney Disease Epidemiology Collaboration (CKD-EPI) equation refit??without adjustment for race. BUN/Creatinine Ratio 17.4 LAB CHEMISTRY METHOD 04/02/2024 3:16 PM [facility] Calcium 9.6 8.5 - 10.5 mg/dL LAB CHEMISTRY METHOD 04/02/2024 3:16 PM [facility] AST (SGOT) 19 10 - 42 unit/L LAB CHEMISTRY METHOD 04/02/2024 3:16 PM [facility] ALT (SGPT) 30 10 - 60 unit/L LAB CHEMISTRY METHOD 04/02/2024 3:16 PM [facility] Alkaline Phosphatase 157(H) 42 - 121 unit/L LAB CHEMISTRY METHOD 04/02/2024 3:16 PM [facility] Total Protein 7.2 6.0 - 8.0 g/dL LAB CHEMISTRY METHOD 04/02/2024 3:16 PM [facility] Albumin 4.0 3.2 - 5.0 g/dL LAB CHEMISTRY METHOD 04/02/2024 3:16 PM [facility] Total Bilirubin 0.6 0.0 - 1.4 mg/dL LAB CHEMISTRY METHOD 04/02/2024 3:16 PM [facility] Blood Venous blood specimen / Unknown Venipuncture / Unknown 04/02/2024 9:47 AM EST 04/02/2024 9:47 AM EST us Elvira Mccurdy MD LAB BLOOD ORDERABLES Final Res ult [facility] [address] [place], [place] [address] [phone] * Falls Risk Assessment (09/26/2023) Falls Risk Assessment Abstracted Historical Provider HEALTH MAINTENANCE Final Result * Depression Screening (09/26/2023) HM Depression Screening Abstracted Historical Provider HEALTH MAINTENANCE Final Result * Colonoscopy (09/24/2018) Colonoscopy No Interpretation , Abstracted Anatomical Region Laterality Modality Other Historical Provider HEALTH MAINTENANCE Final Result from Last 3 Months or Most Recently Relevant to Health Maintenance Insurance [facility]IC[facility] Care Teams Flexible Machining System Machinist Relationship Specialty Start Date End Date Elvira Mccurdy MD [address] [phone] PCP - General Internal Medicine 07/04/21
--- OUTSIDE RECORDS SUMMARY | 2024-06-03 14:22 | XMS_ITS ---
Author Organization [facility] Address [address] [place] [address] Phone Care Team Providers Care Mobile Marketing Specialist Name Role Phone Calli SERRA, Elvira Primary Care Provider [phone] [facility] Unavailable [phone] Plan of Treatment No Plan of Treatment Recorded Assessments Includes: Assessments for all patient encounters No Assessments Recorded Medical Equipment - Implanted Devices Includes: Current and historical Devices No Medical Equipment Recorded Medications Administered Includes: Administered Medications in patient's chart No Administered Medications Recorded Results Includes: Results from 06/03/2023 through 06/03/2024 No Results Recorded For Specified Dates History of Present Illness History of Present Illness not supported for this document type No History of Present Illness Recorded Social History No Social History Recorded - Smoking Status Unknown Medical History Includes: Medical History in patient's chart No Medical History Recorded Family History Includes: Family History in patient's chart No Family History Recorded Review of Systems Review of Systems not supported for this document type No Review of Systems Recorded Mental Status No Mental Status Recorded Functional Status No Functional Status Recorded Physical Exam Physical Exam not supported for this document type No Physical Exam Recorded Insurance Includes: Active Insurance Policies Plan Name Member ID Group # Subscriber Relationship Effect albert Dates 1 - Medicare Part B [facility] [id number] Jayda Montesinos Self 2 - [employer] [id number] Jayda Juarez Clinical Notes Includes: Signed Clinical Notes starting from 04/02/2022 No Clinical Notes Recorded
--- OUTSIDE RECORDS SUMMARY | 2024-06-03 14:22 | XMS_ITS | Clinical Summary ---
Author Organization [facility] Address [address] [place] [address] Phone Care Team Providers Care Dinkey Driver Name Role Phone Calli SERRA, Elvira Primary Care Provider [phone] [facility] [phone] Reason for Visit and Chief Complaint Medicare New Patient Plan of Treatment No Plan of Treatment Recorded Assessments Includes: Assessments from this encounter No Assessments Recorded Medical Equipment - Implanted Devices Includes: Current Devices No Medical Equipment Recorded Medications Administered Includes: Administered Medications from this encounter No Administered Medications Recorded Vital Signs Includes: Vital Signs from this encounter Vital Name 03/26/2023 08:47A Blood Pressure Sitting (mmHg) 159/92 Pulse Rate-Sitting (bpm) 68 Temp-Temporal 97 Height (in) 60 Weight (lb) 175 Body Mass Index 34.2 Body Surface Area 1.8 Oxygen Saturation (%) 97 Last Documented: On 03/26/2023 8:48AM ; [facility] Results Includes: Results discussed during this encounter No Results Recorded For Specified Dates History of Present Illness Includes: History of Present Illness from this encounter No History of Present Illness Recorded Social History No Social History Recorded - Smoking Status Unknown Medical History Includes: Medical History addressed during this encounter No Medical History Recorded Family History Includes: Family History addressed during this encounter No Family History Recorded Review of Systems Includes: Review of Systems from this encounter No Review of Systems Recorded Mental Status Includes: Mental Status from this encounter No Mental Status Recorded Functional Status Includes: Functional Status from this encounter No Functional Status Recorded Physical Exam Includes: Physical Exam from this encounter Encounters Encounter Provider Location Date Check-In Time Check-Out Time Diagnosis Medicare New Patient Wally Tate MD [facility] 03/26/20 8:40AM 9:16AM Insurance Includes: Active Insurance Policies Plan Name Member ID Group # Subscriber Relationship Effect albert Dates 1 - Medicare Part B of [place] [id number] Jayda Montesinos Self 2 - [employer] [id number] Jayda Montesinos Self Clinical Notes Includes: Clinical Notes from this encounter * Progress note Date Encounter Last Documented by 03/26/2023 Medicare New Patient Last docume nted on 03/26/2023; 11:39 AM, Wally Tate MD; [facility], Chief Complaint CC: Left distal radius fracture DOI: 03/16/2023 Junior: Slip on wet surface with dog leash HPI: Extremely pleasant 72-year-old [id number] female Non-smoker nondiabetic minimal: Medical comorbidities Mechanical fall Evaluated [facility] ER Imaging studies performed patient placed in sugar-tong splint Patient presents today in clinic X-rays performed Distal radius fracture slight intra-articular comminution significant dorsal angulation of approximately 20 degrees nondisplaced but impacted Physical exam alert oriented nondistressed extremely pleasant 72-year-old female. Examination of her left wrist. Swelling moderate no blistering tenting. Median radial ulnar motor and sensory nerves intact ecchymosis moderate. No tenderness over the radial head excellent motion MCP PIP DIP. Reduction/plan 72-year-old [id number] female left distal radius fracture intra-articular with fairly significant dorsal angulation. Treatment options explained with patient Second opinion Dr. Dina Couch [facility] hand surgery . HILLARY Tate MD Physical Findings - Vitals taken 03/26/2023 08:47 am BP-Sitting 159/92 mmHg Pulse Rate-Sitting 68 bpm Temp-Temporal 97 F Height 60 in Weight 175 lbs Body Mass Index 34.2 kg/m2 Body Surface Area 1.8 m2 Oxygen Saturation 97 %
== END 2024-06-03 14:05 | disposition home or self-care (01) ==
LOC: HO.HOP 13:14
PROVIDERS: PCP Internal Medicine; Visit Provider Psychiatry & Neurology Psychiatry
DX: F40.01 Agoraphobia with panic disorder (principal); F32.4 Major depressive disorder, single episode, in partial remission; F41.1 Generalized anxiety disorder
CPT/HCPCS: 90833; 99213

== ENCOUNTER → 2024-06-03 13:14 | Outpatient (BNVA) | payer MEDICARE, SELFPAY | PROVIDERS: PCP Internal Medicine; Visit Provider Psychiatry & Neurology Psychiatry | DX: F40.01 Agoraphobia with panic disorder (principal); F32.4 Major depressive disorder, single episode, in partial remission; F41.1 Generalized anxiety disorder | CPT/HCPCS: 99212 ==

== ENCOUNTER 2024-08-05 10:54 | Outpatient (AMB) | payer MEDICARE, SELFPAY ==
--- NOTE | 2024-08-05 11:13 | MHC.OFFVISPS ---
Intake Intake Visit Reasons: depression Allergies No Known Allergies Allergy (Verified 09/25/22 13:43) Medication List - Last Reconciled 08/05/24 by Joe Chandler MD atorvastatin 20 mg PO DAILY budesonide-formoterol 160-4.5 mcg/actuation (Symbicort) 2 puffs inhalation buspirone 10 mg PO BID 90 days carvedilol 6.25 mg PO BID lisinopril 20 mg PO DAILY lorazepam 0.5 mg PO BID PRN lorazepam 0.5 mg PO BID PRN sertraline 100 mg PO DAILY umeclidinium 62.5 mcg/actuation (Incruse Ellipta) 1 inh inhalation DAILY HPI- Psychiatric Chief Complaint: depression HPI Narrative: Pt has been having inc panic attacks friend has been dealing with friend who has metastatic ovarian ca has been managing with her friend .Pt has felt inc anxious more panic. Friend is going thru lot of emotional issues Pt has not done relaxation breathing. Does tend to have a significant amount of chronic anxiety however has been fearful of trying any medication changes and higher doses of sertraline more not tolerated. Past Psychiatric History: Longstanding history of panic disorder generalized anxiety disorder and history of recurrent depression Has been more stable the past few years Mental Status Exam Mental Status Exam Patient Appearance: Well Grooomed Patient Orientation: Person, Place, Time and Situation Level of Consciousness: Awake and Appropriate Patient Behavior: Appropriate Mood Description: Apprehensive Affect Description: Apprehensive Patient Cognition Impaired: No Ability to Follow Directions: Good Speech Pattern: Clear Memory Description: Intact Hallucinations: None Delusions: Not Present Thought Process: Intact and Goal Oriented Thought Content: positive for Goal Oriented, positive for Preoccupation, negative for Suicidal Ideation or negative for Homicidal Ideation Depressive Symptoms: Increased Anxiety Judgement: Good Judgement and Insight: Able to discuss how to try and avoid being in emotional sponge for her sister's negative thinking Assessment and Plan Assessment & Plan (1) Panic disorder with agoraphobia: Status: Acute Code(s): F40.01 - Agoraphobia with panic disorder (2) Generalized anxiety disorder: Status: Acute Code(s): F41.1 - Generalized anxiety disorder Plan discussed option to see therapist.Has been having inc panic feels not able to start in tx we discussed things did not have to start from the beginning but focused on more immediate concerns and strategies for managing her chronic anxiety. Continue BuSpar sertraline at mirtazapine for help with sleep and anxiety Medications: New mirtazapine 3.75 - 7.5 mg (0.5 - 1 x 7.5 mg) PO BEDTIME PRN 30 tabs 2RF insomnia Counseling and coordination of Care Details-Self Mgmt counseling: Anxiety management strategies and interpersonal issues Details: I spent [] minutes reviewing the record, seeing the patient and documenting in the medical record. Counseling provided to the patient/caregiver as outlined below. Addressed patient/caregiver concerns regarding current medication regime including effective adherence. Addressed patient/caregiver concerns regarding diagnosis and prognosis including accuracy of diagnosis, prognosis over time, impact of diagnosis. Addressed patient/caregiver concerns regarding impact of recent stressors. 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
--- OUTSIDE RECORDS SUMMARY | 2024-08-05 13:15 | XMS_ITS ---
Author Organization [facility] Address [address] [place] [address] Phone Care Team Providers Care Etl Consultant Name Role Phone Calli SERRA, Elvira Primary Care Provider [phone] [facility] Unavailable [phone] Plan of Treatment No Plan of Treatment Recorded Assessments Includes: Assessments for all patient encounters No Assessments Recorded Medical Equipment - Implanted Devices Includes: Current and historical Devices No Medical Equipment Recorded Medications Administered Includes: Administered Medications in patient's chart No Administered Medications Recorded Results Includes: Results from 08/06/2023 through 08/05/2024 No Results Recorded For Specified Dates History [...] albert Dates 1 - Medicare Part B [facility] [id number] Jayda Montesinos Self 2 - [employer] [id number] Jayda Juarez Clinical Notes Includes: Signed Clinical Notes starting from 04/02/2022 No Clinical Notes Recorded
--- OUTSIDE RECORDS SUMMARY | 2024-08-05 13:15 | XMS_ITS | Clinical Summary ---
Author Organization [facility] Address [address] [place] [address] Care Team Providers Care Jewelry Technician Name Role Phone Cesar Grimes MD Primary Care Provider Allergies No known active allergies Medications Medication [...] (two) times a day. 0 Active Umeclidinium Lawler 62.5 MCG/INH AEPB Inhale into the lungs. [...] age to complete this topic Care Teams Jewelry Technician Relationship Specialty Start Date End Date Cesar Grimes MD 175 [facility] [address] [place] [address] PCP - General Gastroenterology 07/20/20
--- OUTSIDE RECORDS SUMMARY | 2024-08-05 13:15 | XMS_ITS ---
Care Plan - [facility] Created on: August 05, 2024 Jayda Montesinos : 1950 Sex: Female Author Organization [facility] Address [address] [place] [address] Phone Care Team Providers Care Boat Operator Name Role Phone Calli SERRA, Elvira Primary Care Provider [phone] [facility] Unavailable [phone]
--- OUTSIDE RECORDS SUMMARY | 2024-08-05 13:16 | XMS_ITS | Clinical Summary ---
Author Organization [facility] Address [address] [place] [address] Phone Care Team Providers Care Building Manager Name Role Phone Calli SERRA, Elvira Primary Care Provider [phone] [facility] Un[facility] [phone] Reason for Visit and Chief Complaint Medicare [...] 97 Last Documented: On 03/26/2023 8:48AM ; [facility] Results Includes: Results discussed during this encounter [...] Diagnosis Medicare New Patient Wally Tate MD [facility] 03/26/20 8:40AM 9:16AM Insurance Includes: Active Insurance Policies Plan Name Member ID Group # Subscriber Relationship Effect albert Dates 1 - Medicare Part B of [place] [id number] Jayda Montesinos Self 2 - [employer] [id number] Jayda Montesinos Self Clinical Notes Includes: Clinical Notes from this encounter * Progress note Date Encounter Last Documented by 03/26/2023 Medicare New Patient Last docume nted on 03/26/2023; 11:39 AM, Wally Tate MD; [facility], Chief Complaint CC: Left distal radius fracture DOI: 03/16/2023 Junior: Slip on wet surface with dog leash HPI: Extremely pleasant 72-year-old [id number]-hzru-[id number] female Non-smoker nondiabetic minimal: Medical comorbidities Mechanical fall Evaluated [facility] Imaging studies performed patient placed in [...] excellent motion MCP PIP DIP. Reduction/plan 72-year-old [id number]-[id number] female left distal radius fracture intra-articular with fairly significant dorsal angulation. Treatment options explained with patient Second opinion Dr. Dina Couch [facility] hand surgery . HILLARY Tate MD Physical Findings - Vitals taken 03/26/2023 08:47 am BP-Sitting 159/92 mmHg Pulse Rate-Sitting 68 bpm Temp-Temporal 97 F Height 60 in Weight 175 lbs Body Mass Index 34.2 kg/m2 Body Surface Area 1.8 m2 Oxygen Saturation 97 %
--- OUTSIDE RECORDS SUMMARY | 2024-08-05 13:16 | XMS_ITS | Clinical Summary ---
Author Organization 175 [facility] Address [address] [place] [address] Phone Care Team Providers Care Cork Insulation Installer Name Role Phone Elvira Mccurdy MD Primary Care Provider [phone] Allergies No known active allergies Medications levomefolate calcium (L-METHYLFOLATE ORAL) L-Methylfola te-Methylcob alamin 15-2 MG Cap Take by mouth. 11/02/2022 Active albuterol HFA (PROAIR HFA ; PROVENTIL HFA ; VENTOLIN HFA) 90 mcg/actuation inhaler Inhale 2 Puffs into the lungs every 6 hours as needed for Cough or Wheezing. 09/01/2019 Active busPIRone (BUSPAR) 10 mg tablet Take [...] EVERY DAY 90 tablet 2 04/21/2024 Active atorvastatin (LIPITOR) 20 mg tablet TAKE 1 TABLET BY MOUTH EVERY DAY 90 tablet 1 06/04/2024 Active Active Problems Problem Noted Date Diagnosed [...] be causing the symptoms. Systolic heart failure (CMS/HCC V24, CMS/HCC V28 ) 05/06/2020 Overview (02/27/2024): Last Assessment & Plan: [...] not smoking. Anxiety 09/08/2016 COPD (chronic obstructive pu lmonary disease) ([facility] V24, [facility] V28) 09/08/2016 Hyperparathyroidism ([facility] V24) 08/31/2016 Benign paroxysmal positional vertigo 11/27/2014 Allergic rhinitis 08/28/2014 GERD (gastroesophageal reflux disease) 5 Actinic keratosis 12/11/2013 Adrenal adenoma 11/18/2013 Alopecia 09/02/2012 Insomnia 04/24/2012 Meralgia paresthetica 11/01/2010 Immunizations Name Administration Dates Next Due DTaP [...] 10 yrs UPPER GASTROINTESTINAL ENDOSCOPY 01/28/2015 PROCEDURE: [place] UPPER GI ENDOSCOPY PERFORMED; COMMENT: Stevenson's mucosa [...] reflux disease) Hypercholesterolemia 08/06/2017 DX:Hypercho lesterolemia Hyperparathyroidism ([facility] V24) 08/31/2016 DX:Hyperparathyroidism ([facility]) Hypertension 08/06/2017 DX:Hypertension Insomnia 04/24/2012 DX:Insomnia Meralgia paresthetica 11/01/2010 DX:Meralgi a paresthetica COPD (chronic obstructive pu lmonary disease) ([facility] V24, [facility] V28) 09/08/2016 DX:COPD (chronic o bstructive pulmonary disease) ([facility]) Family History Medical History Relation Name Comments [...] Description 08/26/2024 8:20 AM EDT Office Visit [facility] [address] [phone] Gregory Acosta MD 300 [facility] [address] [place] [address] 08/27/2024 9:30 AM EDT Appointment [facility] [address] [place] [id number] Tang Pat DO [address] [address] 10/02/2024 8:30 AM EDT Office Visit Internal Medicine - [place] [address] [facility] [address] [place] [address] Elvira Mccurdy MD 175 [facility] [address] [place] [address] Health Maintenance Due Date Last Done Comments Zoster Vaccines (1 of 2) 08/16/1967 Pneumococcal Vaccine: 50+ Years (3 of 3 - PPSV23, PCV20 or PCV21) 03/20/2018 01/23/2018, 07/12/2011 COVID-19 Vaccine (2 - Pfizer risk series) 07/18/2020 06/27/2020 Hepatitis C Screening 04/01/2022 Osteoporosis Screening (Bone Density Screening) 04/01/2022 Social Influencers of Health Screening 04/01/2022 RSV Immunization Adult Patients (1 - 1-dose 75+ series) 08/16/2023 DTaP,Tdap,and Td Vaccines (3 - Td or Tdap) 08/20/2023 08/19/2013, 11/16/2012 Colorectal Cancer Screening: Colonoscopy 09/25/2023 09/24/2018 Depression Screening 09/25/2024 09/26/2023 Falls Risk Assessment 09/25/2024 09/26/2023 Medicare Annual Wellness Visit 09/25/2024 09/26/2023 Influenza Vaccine (Season Ended) 2024 01/20/2021, 02/04/2020, 04/30/2019, Additional history exists Hypertension/CHF/CAD Annual BMP Blood Test 04/02/2025 04/02/2024, [...] age to complete this topic Meningococcal B Vaccine Aged Out No l onger eligible based on patient's age to complete [...] for colorectal cancer Chronic systolic heart failure ([facility]/HCC V24, [facility] V28) Hypercholesterolemia Primary hypertension LIPID PANEL WITH REFLEX TO DIRECT LDL Routine 04/02/2024 9:47 AM EST Screening for colorectal cancer Chronic systolic heart failure ([facility] V24, [facility] V28) Hypercholesterolemia Primary hypertension DEPRESSION SCREENING Routine 09/26/2023 FALLS RISK ASSESSMENT Routine 09/26/2023 COLONOSCOPY Routine 09/24/2018 from Last 3 Months or Most Recently Relevant to Health Maintenance Results * Lipid panel with reflex to direct LDL (04/02/2024 9:47 AM EST) Cholesterol 155 0 - 200 mg/dL LAB CHEMISTRY METHOD 04/02/2024 3:10 PM [facility] Triglycerides 107 0 - 150 mg/dL LAB CHEMISTRY METHOD 04/02/2024 3:10 PM EST [facility] HDL 73 >=40 mg/dL LAB CHEMISTRY METHOD 04/02/2024 3:10 PM [facility] LDL Calculated 61 0 - 100 mg/dL LAB CHEMISTRY METHOD 04/02/2024 3:10 PM [facility] VLDL Cholesterol Bi 21.4 mg/dL LAB CHEMISTRY METHOD 04/02/2024 3:10 PM EST [facility] Non HDL Chol. (LDL+VLDL) 82 <145 mg/dL LAB CHEMISTRY METHOD 04/02/2024 3:10 PM EST [facility] Chol/HDL Ratio 2.1 0.0 - 4.4 LAB CHEMISTRY METHOD 04/02/2024 3:10 PM [facility] Blood Venous blood specimen / Unknown Venipuncture / Unknown 04/02/2024 9:47 AM EST 04/02/2024 9:47 AM EST us Elvira Mccurdy MD LAB BLOOD ORDERABLES Final Res ult [facility] [address] [place] [address], [place] [phone] * (ABNORMAL) Comprehensive metabolic panel (04/02/2024 9:47 AM EST) Sodium 139 133 - 145 mmol/L LAB CHEMISTRY METHOD 04/02/2024 3:16 PM [facility] Potassium 4.4 3.5 - 5.5 mmol/L LAB CHEMISTRY METHOD 04/02/2024 3:16 PM [facility] Chloride 107 96 - 110 mmol/L LAB CHEMISTRY METHOD 04/02/2024 3:16 PM [facility] CO2 26 21 - 32 mmol/L LAB CHEMISTRY METHOD 04/02/2024 3:16 PM [facility] Anion Gap 6 3 - 11 LAB CHEMISTRY METHOD 04/02/2024 3:16 PM [facility] Glucose 86 70 - 100 mg/dL LAB CHEMISTRY METHOD 04/02/2024 3:16 PM [facility] BUN 16 5 - 25 mg/dL LAB CHEMISTRY METHOD 04/02/2024 3:16 PM [facility] Creatinine 0.92 0.50 - 1.10 mg/dL LAB CHEMISTRY METHOD 04/02/2024 3:16 PM [facility] eGFR 65 >=60 mL/min/1. 73m2 LAB CHEMISTRY METHOD 04/02/2024 3:16 PM [facility] Comment:Calculation based on the??Chronic Kidney Disease Epidemiology Collaboration (CKD-EPI) equation refit??without adjustment for race. BUN/Creatinine Ratio 17.4 LAB CHEMISTRY METHOD 04/02/2024 3:16 PM [facility] Calcium 9.6 8.5 - 10.5 mg/dL LAB CHEMISTRY METHOD 04/02/2024 3:16 PM [facility] AST (SGOT) 19 10 - 42 unit/L LAB CHEMISTRY METHOD 04/02/2024 3:16 PM [facility] ALT (SGPT) 30 10 - 60 unit/L LAB CHEMISTRY METHOD 04/02/2024 3:16 PM [facility] Alkaline Phosphatase 157(H) 42 - 121 unit/L LAB CHEMISTRY METHOD 04/02/2024 3:16 PM [facility] Total Protein 7.2 6.0 - 8.0 g/dL LAB CHEMISTRY METHOD 04/02/2024 3:16 PM [facility] Albumin 4.0 3.2 - 5.0 g/dL LAB CHEMISTRY METHOD 04/02/2024 3:16 PM [facility] Total Bilirubin 0.6 0.0 - 1.4 mg/dL LAB CHEMISTRY METHOD 04/02/2024 3:16 PM [facility] Blood Venous blood specimen / Unknown Venipuncture / Unknown 04/02/2024 9:47 AM EST 04/02/2024 9:47 AM EST us Elvira Mccurdy MD LAB BLOOD ORDERABLES Final Res ult [facility] [address] [place] [address], * Falls Risk Assessment (09/26/2023) Falls Risk Assessment Abstracted Historical Provider HEALTH MAINTENANCE Final Result * Depression Screening (09/26/2023) Depression Screening Abstracted Historical Provider HEALTH MAINTENANCE Final Result * Colonoscopy (09/24/2018) Colonoscopy No Interpretation , Abstracted Anatomical Region Laterality Modality Other Historical Provider HEALTH MAINTENANCE Final Result from Last 3 Months or Most Recently Relevant to Health Maintenance Insurance MEDICARE [facility] Care Teams Cork Insulation Installer Relationship Specialty Start Date End Date Elvira Mccurdy MD [address] [address] PCP - General Internal Medicine 07/04/21
== END 2024-08-05 11:45 | disposition home or self-care (01) ==
LOC: HO.HOP 10:54
PROVIDERS: PCP Internal Medicine; Visit Provider Psychiatry & Neurology Psychiatry
DX: F40.01 Agoraphobia with panic disorder (principal); F41.1 Generalized anxiety disorder
CPT/HCPCS: 90833; 99213

== ENCOUNTER → 2024-08-05 10:54 | Outpatient (BNVA) | payer MEDICARE, SELFPAY | PROVIDERS: PCP Internal Medicine; Visit Provider Psychiatry & Neurology Psychiatry | DX: F40.01 Agoraphobia with panic disorder (principal); F41.1 Generalized anxiety disorder | CPT/HCPCS: 99212 ==

== ENCOUNTER 2024-10-07 10:51 | Outpatient (AMB) | payer MEDICARE, SELFPAY ==
--- NOTE | 2024-10-07 11:01 | A.OFFPSYCH_ITS ---
Intake Intake Visit Reasons: depression Allergies No Known Allergies Allergy (Verified 09/25/22 13:43) HPI- Psychiatric Chief Complaint: depression HPI Narrative: Pt seen in f/u mood has been ok some chronic anxiety re her family . Pt has problematic relation ship with her sister and 1 of her nieces. Her sisterconstantly complains feels like she has a hard life, difficulty financ ially. Has friend anaya that she is closed to. Sister is an athlete coaches soccer. Nieces feel somewhat rejected pt has felt judged that pt is uncaring. Patient on sertraline and BuSpar. Sertraline can not be increased secondary to petechiae at higher doses. Have strongly urged ongoing psychotherapy he see Dr. Oliveros for many years. Past Psychiatric History: Longstanding history of panic disorder generalized anxiety disorder and history of recurrent depression Has been more stable the past few years Mental Status Exam Mental Status Exam Patient Appearance: Well Grooomed Patient Orientation: Person, Place, Time and Situation Level of Consciousness: Awake and Appropriate Patient Behavior: Appropriate Mood Description: Anxious Affect Description: Apprehensive Patient Cognition Impaired: No Ability to Follow Directions: Good Speech Pattern: Clear Memory Description: Intact Hallucinations: None Delusions: Not Present Thought Process: Intact and Goal Oriented Thought Content: positive for Goal Oriented, positive for Preoccupation, negative for Suicidal Ideation or negative for Homicidal Ideation Depressive Symptoms: Increased Anxiety Judgement: Good Judgement and Insight: Able to discuss how to try and avoid being in emotional sponge for her sister's negative thinking Assessment and Plan Assessment & Plan (1) Generalized anxiety disorder: Status: Acute Code(s): F41.1 - Generalized anxiety disorder (2) Panic disorder with agoraphobia: Status: Acute Code(s): F40.01 - Agoraphobia with panic disorder (3) Major depressive disorder in partial remission: Status: Acute Code(s): F32.4 - Major depressive disorder, single episode, in partial remission Plan Patient seen psych follow-up patient mood has been more anxious she has felt somewhat alienated from her sister and niece. We discussed different strategies to try and approach this. Patient is conflict avoidant has a hard time bringing issues.Cont sertraline BuSpar can increase dose monitor for side effects strongly urged some short-term interpersonal counseling to help deal with issues in her family that are causing anxiety and distress Counseling and coordination of Care Details-Self Mgmt counseling: Family related interpersonal issues in strategies Medication management counseling: Effectiveness, Side effects and Dosing range Diagnosis and Prognosis Counseling: Impact of diagnosis on life functions and Adequacy of current interventions Details: I spent [40] minutes reviewing the record, seeing the patient and documenting in the medical record. Counseling provided to the patient/caregiver as outlined below. Addressed patient/caregiver concerns regarding current medication regime including effective adherence. Addressed patient/caregiver concerns regarding diagnosis an d prognosis including accuracy of diagnosis, prognosis over time, impact of diagnosis. Addressed patient/caregiver concerns regarding impact of recent stressors. 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
--- OUTSIDE RECORDS SUMMARY | 2024-10-07 12:20 | XMS_ITS | Encounter Summary ---
Author Organization [facility] Address [address] [place] [address] Care Team Providers Care Head Of Maintenance Name Role Phone Elvira Mccurdy MD Primary Care Provider [phone] Reason for Referral * Imaging (Routine) - Authorized Specialty Diagnoses / Procedures Referred By Contac micaela Referred To Contact Radiology Diagnoses Breast cancer screening by mammogram Procedures MG Mammo Digital Screening bilat Elvira Mccurdy MD [address] [phone] Phone: tel: fax: [address] [phone] Phone: tel: Referral ID Status Reason Start Date Expiration Date V isits Requested Visits Authorized [id number] Authorized 10/02/2024 10/02/2025 1 1 Reason for Visit * Reason Comments Medicare Annual Wellness Visit Subsequen t Encounter Details Date Type Department Care Team (Latest Contact Info) Description 10/02/2024 8:30 AM EDT Office Visit Internal Medicine - [place] [address] [phone] Elvira Mccurdy MD [address] [phone] Breast cancer screening by mammogram (Primary Dx); Encounter for subsequent annual wellness visit (AWV) in Medicare patient; Primary hypertension; Chronic systolic heart failure ([facility] V24, [facility] V28); Hypercholesterolemia; Chronic obstructive pulmonary disease, unspecified COPD type ([facility] V24, [facility] V28); Need for vaccination against Streptococcus pneumoniae Social History Tobacco Use Types Packs/Day Years Used Date Smoking Tobacco: Never Smokeless Tobacco: Never Alcohol Use Standard Drinks/Week Comments No 0 (1 standard drink = 0.6 oz pur e alcohol) Interpersonal Safety Answer Date Record ed Physical Abuse 08/27/2024 Verbal Abuse 08/27/2024 Comments Unknown Sex and Gender Information Value Date Recorded Sex Assigned at Not on file Legal Sex Female 4:11 AM EST Gender Identity Not on file Sexual Orientation Not on file documented as of this encounter Last Filed Vital Signs Vital Sign Reading Time Taken Comments Blood Pressure 132/80 10/02/2024 8:29 AM EDT Pulse 73 10/02/2024 8:29 AM EDT Temperature 36.3 ??C (97.3 ??F) 10/02/2024 8:29 AM ED T Respiratory Rate - - Oxygen Saturation 98% 10/02/2024 8:29 AM EDT Inhaled Oxygen Concentration - - Weight 74.4 kg (164 lb) 10/02/2024 8:29 AM EDT Height 152.4 cm (5') 10/02/2024 8:29 AM EDT Body Mass Index 32.03 10/02/2024 8:29 AM EDT documented in this encounter Progress Notes * Elvira Mccurdy MD - 10/02/2024 8:30 AM EDTAssociated Problem(s): Hypertension Orders: Basic metabolic panel; Future CBC and differential; Future * Elvira Mccurdy MD - 10/02/2024 8:30 AM EDTAssociated Problem(s): Systolic heart failure ([facility] V24, [facility] V28) Orders: Basic metabolic panel; Future CBC and differential; Future * Elvira Mccurdy MD - 10/02/2024 8:30 AM EDTAssociated Problem(s): Hypercholesterolemia Orders: Basic metabolic panel; Future CBC and differential; Future * Elvira Mccurdy MD - 10/02/2024 8:30 AM EDTAssociated Problem(s): COPD (chronic obstructive pulmonary disease) (CMS/HCC V24, CMS/HCC V28) Orders: Basic metabolic panel; Future CBC and differential; Future * Michel Cox MA - 10/02/2024 8:30 AM EDTAddended by: MICHEL COX on: 10/02/2024 10:20 AM Modules accepted: Orders * Elvira Mccurdy MD - 10/02/2024 8:30 AM EDT Images from the original note were not included. CHIEF COMPLAINT: Medicare Annual Wellness Visit Subsequent IDENTIFIER: Jayda Montesinos is a 74 y.o. old female. HPI:Hypertension COPD anxiety hyperlipidemia anemia depression GERD Patient was evaluated by physiatry for the back pain, had an MRI of the lumbar spine, she was offered injection, she refused. She feels somewhat better with her pain. Just had a colonoscopy, multiple polyps, repeat in 3 years ROS: GENERAL: No malaise, significant weight loss or fever NECK: No lumps, goiter, pain or significant neck swelling RESPIRATORY: No cough, wheezing or shortness of breath CARDIOVASCULAR: No chest pain, leg swelling or palpitations GI: No abdominal discomfort, blood in stools or black stools PSYCH: No sleep disturbance, mood disorder or recent psychosocial stressors. PAST MEDICAL HISTORY: Patient Active Problem List Diagnosis Date Noted Left wrist fracture, sequela 05/05/2023 Closed fracture of left distal radius 03/29/2023 Shortness of breath 09/26/2021 Systolic heart failure ([facility] V24, [facility] V28) 05/06/2020 Stevenson's esophagus 08/06/2017 Hypercholesterolemia 08/06/2017 Hypertension 08/06/2017 Anxiety 09/08/2016 COPD (chronic obstructive pulmonary disease) ([facility] V24, [facility] V28) 09/08/2016 Hyperparathyroidism ([facility] V24) 08/31/2016 Benign paroxysmal positional vertigo 11/27/2014 Allergic rhinitis 08/28/2014 GERD (gastroesophageal reflux disease) 05/29/2014 Actinic keratosis 12/11/2013 Adrenal adenoma 11/18/2013 Alopecia 09/02/2012 Insomnia 04/24/2012 Meralgia paresthetica 11/01/2010 Past Surgical History: Procedure Laterality Date COLONOSCOPY 07/07/2008 PROCEDURE: HISTORICAL COLONOSCOPY; COMMENT: Diverticulosis. Repeat 10 yrs OTHER SURGICAL HISTORY PROCEDURE: HISTORY OTHER; COMMENT: Renny fundoplication UPPER GASTROINTESTINAL ENDOSCOPY 01/28/2015 PROCEDURE: IN UPPER GI ENDOSCOPY PERFORMED; COMMENT: Stevenson's mucosa w/ focal intestinal metaplasia negative for dysplasia, Rpt 3 yrs SOCIAL HISTORY: Social History Tobacco Use Smoking status: Never Smokeless tobacco: Never Substance Use Topics Alcohol use: No FAMILY HISTORY: Family History Problem Relation Name Age of Onset Hypertension Brother Heart attack Mother Colon cancer Mother Hypertension Sister Coronary artery disease Sister Family Status Relation Name Status Brother (Not Specified) Mother (Not Specified) Sister (Not Specified) No partnership data on file MEDICATIONS DISCONTINUED/REORDERED: Medications Discontinued During This Encounter Medication Reason polyethylene glycol (Golytely) 236-22.74-6.74 -5.86 gram solution bisacodyL (DULCOLAX) 5 mg EC tablet ACTIVE MEDICATIONS: Outpatient Medications Marked as Taking for the 10/02/24 encounter (Office Visit) with Elvira Mccurdy MD Medication Sig Dispense Refill albuterol HFA (PROAIR HFA ; PROVENTIL HFA ; VENTOLIN HFA) 90 mcg/actuation inhaler Inhale 2 Puffs into the lungs every 6 hours as needed for Cough or Wheezing. amLODIPine (NORVASC) 5 mg tablet TAKE 1 TABLET BY MOUTH EVERY DAY 90 tablet 2 atorvastatin (LIPITOR) 20 mg tablet TAKE 1 TABLET BY MOUTH EVERY DAY 90 tablet 1 busPIRone (BUSPAR) 10 mg tablet Take 1 Tablet by mouth 2 times daily. 2 tabs in the morning & 1tab in the evening carvediloL (COREG) 6.25 mg tablet TAKE 1 TABLET BY MOUTH EVERY 12 HOURS 180 tablet 1 clotrimazole-betamethasone (LOTRISONE) 1-0.05 % cream PLEASE SEE ATTACHED FOR DETAILED DIRECTIONS fluticasone furoate-vilanteroL (Breo Ellipta) 100-25 mcg/dose inhaler Inhale by mouth 1 (one) time each day. lansoprazole (PREVACID) [address] capsule Take 1 Cap by mouth every morning (before breakfast). levomefolate calcium (L-METHYLFOLATE ORAL) M-Pwoonlxmoznc-Sdmambecuwozesr 15-2 MG Cap Take by mouth. lisinopriL (PRINIVIL,ZESTRIL) 30 mg tablet TAKE 1 TABLET BY MOUTH EVERY DAY 90 tablet 1 LORazepam (ATIVAN) 0.5 mg tablet 1 Tablet 2 times daily. PRN mirtazapine (REMERON) 7.5 mg tablet sertraline (ZOLOFT) 100 mg tablet 100 mg daily. ALLERGIES: No Known Allergies PHYSICAL EXAM: Visit Vitals BP 132/80 Pulse 73 Temp 36.3 ??C (97.3 ??F) (Temporal) Ht 1.524 m (60 ) Wt 74.4 kg (164 lb) SpO2 98% BMI 32.03 kg/m?? Smoking Status Never BSA 1.72 m?? APPEARANCE: Alert and in no acute distress NECK: Neck supple, no adenopathy, thyroid symmetric and of normal size HEART: RRR with normal S1 and S2, no murmurs, no gallops, no JVD appreciated LUNG: clear to auscultation ABDOMEN: Bowel sounds normoactive, no bruits, soft, non-tender, without organomegaly or palpable masses SKIN: Skin color, texture, turgor normal. No rashes or lesions. LABS/IMAGING: Hospital Outpatient Visit on 08/27/2024 Component Date Value Ref Range Status Final Diagnosis 08/27/2024 Final Value:A. Transverse Colon, polyps x3: Three tubular adenomas. B. Descending Colon, polyps x3: Tubular adenoma. Hyperplastic polyps. C. Rectum, polyp 1: Hyperplastic polyp. Gross Description 08/27/2024 Final Value:A. Large Intestine, Transverse Colon, polyp x3: Labeled polyp x 3 trans colon . Received in green-hanson stained formalin, are seven soft, hanson-pink to red polypoid tissue fragments some of which have attached mucosa ranging from 0.15 cm to 0.65 cm in greatest diameter, which are wrapped in paper and submitted in toto in one cassette, seven pieces,multiple levels. B. Large Intestine, Left/Descending Colon, polyps x3: Labeled polyps x 3 desc colon . Received in green-tinged formalin, are five soft hanson-pink to red, flat to polypoid tissues ranging from 0.3 cm to 0.5 cm in greatest diameter, some of which are inkedblue at the base, wrapped in paper and submitted in toto in one cassette, five pieces, multiple levels. C. Large Intestine, Rectum, polyp 1: Labeled polyp x 1 LI rectum . Received in formalin is a soft, hanson-pink to red, 0.4 cm in greatest diameter polypoid tissue which is inked black at the base, wrapped in paper and submitted in toto inone cassette, one piece, multiple levels. TS Disclaimer 08/27/2024 Final Value:Unless otherwise specified, all tissue is 10% NB formalin fixed and paraffin embedded. Office Visit on 08/26/2024 Component Date Value Ref Range Status Ventricular Rate ECG 08/26/2024 73 BPM Final Atrial Rate 08/26/2024 73 BPM Final P-R Interval 08/26/2024 152 ms Final QRS Duration 08/26/2024 84 ms Final Q-T Interval 08/26/2024 386 ms Final QTc 08/26/2024 425 ms Final P Wave [place] 08/26/2024 31 degrees Final R [place] 08/26/2024 -18 degrees Final T [place] 08/26/2024 14 degrees Final ECG Interpretation 08/26/2024 Final Value:Normal sinus rhythm Minimal voltage criteria for LVH, may be normal variant Cannot rule out Anterior infarct , age undetermined Abnormal ECG When compared with ECG of 02-APR-2023 14:16, No significant change was found Confirmed by Maral FALCON JAY ([id number]) on 08/26/2024 8:39:36 AM Medication and lab orders: Orders Placed This Encounter Procedures MG Mammo Digital Screening bilat Basic metabolic panel CBC and differential Other orders: MG MAMMO DIGITAL SCREENING BILAT IMPRESSION: 1. Breast cancer screening by mammogram 2. Encounter for subsequent annual wellness visit (AWV) in Medicare patient 3. Primary hypertension 4. Chronic systolic heart failure ([facility] V24, [facility] V28) 5. Hypercholesterolemia 6. Chronic obstructive pulmonary disease, unspecified COPD type ([facility] V24, [facility] V28) PLAN: Hypertension-- continue amlodipine 5 mg daily, lisinopril and carvedilol, blood pressure under good control CHF--following cardiology, Dr. Falcon, stable Hyperlipidemia--continue atorvastatin GERD--continue lansoprazole COPD--continue inhalers, follows pulmonology Dr. Maxwell Anemia--continue iron supplement On Zoloft and lorazepam from psychiatry Colonoscopy 2024--3 yrs Will order lipid CMP CBC today Follow-up in 6 months or sooner as needed Elvira Mccurdy MD on 10/02/2024 at 9:23 AM EDT Medicare Annual Wellness Visit Note Patient Name: Jayda Montesinos Date of : 1950 Race: White Ethnicity: Not Hispan/Lat Date of Service: 10/02/2024 Patient Care Team: Elvira Mccurdy MD as PCP - General (Internal Medicine) Gregory Falcon MD as Surgeon (Cardiology) Jayda is a 74 y.o. female presenting for Medicare Annual Wellness Visit Subsequent HPI Patient Active Problem List Diagnosis Actinic keratosis Adrenal adenoma Allergic rhinitis Alopecia Anxiety Stevenson's esophagus Benign paroxysmal positional vertigo Closed fracture of left distal radius COPD (chronic obstructive pulmonary disease) ([facility] V24, [facility] V28) GERD (gastroesophageal reflux disease) Hypercholesterolemia Hyperparathyroidism ([facility] V24) Hypertension Insomnia Left wrist fracture, sequela Meralgia paresthetica Shortness of breath Systolic heart failure ([facility] V24, [facility] V28) No Known Allergies Current Outpatient Medications Medication Instructions albuterol HFA (PROAIR HFA ; PROVENTIL HFA ; VENTOLIN HFA) 90 mcg/actuation inhaler Inhale 2 Puffs into the lungs every 6 hours as needed for Cough or Wheezing. amLODIPine (NORVASC) 5 mg tablet TAKE 1 TABLET BY MOUTH EVERY DAY atorvastatin (LIPITOR) 20 mg tablet TAKE 1 TABLET BY MOUTH EVERY DAY busPIRone (BUSPAR) 10 mg tablet Take 1 Tablet by mouth 2 times daily. 2 tabs in the morning & 1tab in the evening carvediloL (COREG) 6.25 mg tablet TAKE 1 TABLET BY MOUTH EVERY 12 HOURS clotrimazole-betamethasone (LOTRISONE) 1-0.05 % cream PLEASE SEE ATTACHED FOR DETAILED DIRECTIONS fluticasone furoate-vilanteroL (Breo Ellipta) 100-25 mcg/dose inhaler Daily lansoprazole (PREVACID) [address] capsule Take 1 Cap by mouth every morning (before breakfast). levomefolate calcium (L-METHYLFOLATE ORAL) P-Xzzgasktwbrr-Cweaydevefgtzma 15-2 MG Cap Take by mouth. lisinopriL (PRINIVIL,ZESTRIL) 30 mg, oral, Daily LORazepam (ATIVAN) 0.5 mg tablet 1 Tablet 2 times daily. PRN mirtazapine (REMERON) 7.5 mg tablet sertraline (ZOLOFT) 100 mg tablet 100 mg daily. Past Medical History: Diagnosis Date Actinic keratosis 12/11/2013 DX:Actinic keratosis Adrenal adenoma 11/18/2013 DX:Adrenal adenoma Allergic rhinitis 08/28/2014 DX:Allergic rhinitis Alopecia 09/02/2012 DX:Alopecia Anxiety 09/08/2016 DX:Anxiety Stevenson's esophagus 08/06/2017 DX:Stevenson's esophagus Benign paroxysmal positional vertigo 11/27/2014 DX:Benign paroxysmal positional vertigo COPD (chronic obstructive pulmonary disease) ([facility] V24, [facility] V28) 09/08/2016 DX:COPD (chronic obstructive pulmonary disease) ([facility]) GERD (gastroesophageal reflux disease) 05/29/2014 DX:GERD (gastroesophageal reflux disease) History of pulmonary embolus (PE) 08/06/2017 DX:History of pulmonary embolus (PE) Hypercholesterolemia 08/06/2017 DX:Hypercholesterolemia Hyperparathyroidism ([facility] V24) 08/31/2016 DX:Hyperparathyroidism (HCC) Hypertension 08/06/2017 DX:Hypertension Insomnia 04/24/2012 DX:Insomnia Meralgia paresthetica 11/01/2010 DX:Meralgia paresthetica Past Surgical History: Procedure Laterality Date COLONOSCOPY 07/07/2008 PROCEDURE: HISTORICAL COLONOSCOPY; COMMENT: Diverticulosis. Repeat 10 yrs OTHER SURGICAL HISTORY PROCEDURE: HISTORY OTHER; COMMENT: Renny fundoplication UPPER GASTROINTESTINAL ENDOSCOPY 01/28/2015 PROCEDURE: IN UPPER GI ENDOSCOPY PERFORMED; COMMENT: Stevenson's mucosa w/ focal intestinal metaplasia negative for dysplasia, Rpt 3 yrs Social History Tobacco Use Smoking status: Never Smokeless tobacco: Never Substance Use Topics Alcohol use: No Drug use: No Family History Problem Relation Name Age of Onset Hypertension Brother Heart attack Mother Colon cancer Mother Hypertension Sister Coronary artery disease Sister Immunization History Administered Date(s) Administered DTaP (Infanrix) 6wks to less than 7yo 08/19/2013 Influenza, Unspecified 01/20/2021 Pfizer SARS-CoV-2 COVID-19, mRNA, LNP-S, preservative free 06/27/2020 Pneumococcal polysaccharide 23 valent (Pneumovax 23) 2yo and older 07/12/2011 Tdap Tetanus diptheria acellular pertussis (Boostrix; Adacel) 7yo and older 11/16/2012 Health Maintenance Topic Date Due Zoster Vaccines (1 of 2) Never done Pneumococcal Vaccine: 50+ Years (3 of 3 - PPSV23, PCV20 or PCV21) 03/20/2018 COVID-19 Vaccine (2 - Pfizer risk series) 07/18/2020 Hepatitis C Screening Never done Osteoporosis Screening (Bone Density Screening) Never done Social Influencers of Health Screening Never done RSV Immunization Adult Patients (1 - 1-dose 75+ series) Never done DTaP,Tdap,and Td Vaccines (3 - Td or Tdap) 08/20/2023 Medicare Annual Wellness Visit 09/25/2024 Influenza Vaccine (Season Ended) 2024 Hypertension/CHF/CAD Annual BMP Blood Test 04/02/2025 Depression Screening 10/01/2025 Falls Risk Assessment 10/02/2025 Colorectal Cancer Screening: Colonoscopy 08/28/2027 Cholesterol Screening (Lipid Panel) 04/02/2029 HIB Vaccines Aged Out Hepatitis B Vaccines Aged Out IPV Vaccines Aged Out Hepatitis A Vaccines Aged Out MMR Vaccines Aged Out Varicella Vaccines Aged Out Meningococcal ACWY Vaccine Aged Out Meningococcal B Vaccine Aged Out HPV Vaccines Aged Out RSV Immunization Patients Under 20 months Aged Out Cognitive Function Assessment: Cognitive screening performed. Mini COG Clock Drawing Test: Normal Fall Screening: Fallen in the past year?: No Feels unsteady when standing or walking?: Yes Worries about falling?: Yes Fall Risk Comments: Does a lot of walking had a fall that resulted in broken wrist which is why sheworries about falling Depression Screening Over the last 2 weeks, how often have you been bothered by little interest or pleasure in doing things?: (Patient-Rptd) Not at all Over the last 2 weeks, how often have you been bothered by feeling down, depressed, or hopeless?: (Patient-Rptd) Not at all Depression Risk: (Patient-Rptd) 0 PHQ9 Full Set of Questions Over the last 2 weeks, how often have you been bothered by little interest or pleasure in doing things?: (Patient-Rptd) Not at all Over the last 2 weeks, how often have you been bothered by feeling down, depressed, or hopeless?: (Patient-Rptd) Not at all PHQ -9 Depression Risk Score: (Patient-Rptd) 0 Activity of Daily Living (ADLs): No data recorded Instrumental Activities of Daily Living (IADLs): No data recorded Functional Ability and Level of Safety Review Health Status: No data recorded Physical Activity: No data recorded Nutritional Assessment: No data recorded Safety: Psychosocial Risks: Review of Systems Objective BP 132/80 Pulse 73 Temp 36.3 ??C (97.3 ??F) (Temporal) Ht 1.524 m (60 ) Wt 74.4 kg (164 lb) BMI 32.03 kg/m?? SpO2: 98 % Hearing: No data recorded Vision Screening: Required for Medicare Initial Preventative Physical Exam (IPPE) No data recorded Physical Exam Patient presented today for an Subsequent Medicare Wellness Visit with management of chronic condition(s). Assessment & Plan Breast cancer screening by mammogram Orders: MG Mammo Digital Screening bilat; Future Basic metabolic panel; Future CBC and differential; Future Encounter for subsequent annual wellness visit (AWV) in Medicare patient Orders: Basic metabolic panel; Future CBC and differential; Future Primary hypertension Orders: Basic metabolic panel; Future CBC and differential; Future Chronic systolic heart failure (CMS/HCC V24, CMS/HCC V28) Orders: Basic metabolic panel; Future CBC and differential; Future Hypercholesterolemia Orders: Basic metabolic panel; Future CBC and differential; Future Chronic obstructive pulmonary disease, unspecified COPD type ([facility] V24, [facility] V28) Orders: Basic metabolic panel; Future CBC and differential; Future Risk Assessments: Body mass index is 32.03 kg/m??. The BMI is above average. The patient received dietary education and exercise education because they have an above normal BMI. Fall Risk: Have you fallen in the past year? no. Are you worried about falling? yes. Discussed: notrushing through tasks PHQ -9 Depression Risk Score: (Patient-Rptd) 0 Depression plan: Screen was negative Pain Medication: Patient does not take any opioid medications Advance Care Planning Advance care planning is the process of planning for future medical care in case you are unable to make your own medical decisions. It involves choosing a health care accounts receivable representative and reviewing future health care directives. The patient Advance Directives: does not have advance directives or surrogate decision maker.. Advance directives reviewed and/or discussed: Patient is not interested in discussing advance care planning or health care agent at this time. Health Maintenance Due Topic Date Due Zoster Vaccines (1 of 2) Never done Pneumococcal Vaccine: 50+ Years (3 of 3 - PPSV23, PCV20 or PCV21) 03/20/2018 COVID-19 Vaccine (2 - Pfizer risk series) 07/18/2020 Hepatitis C Screening Never done Osteoporosis Screening (Bone Density Screening) Never done Social Influencers of Health Screening Never done RSV Immunization Adult Patients (1 - 1-dose 75+ series) Never done DTaP,Tdap,and Td Vaccines (3 - Td or Tdap) 08/20/2023 Medicare Annual Wellness Visit 09/25/2024 The following vaccine(s) were recommended: Vaccines Recommended: Pneumococcal (Pneumonia) vaccine Patient Instructions (the written plan) as discussed and documented in our visit today. Independent ADLs, IADLs, no cognitive decline, no depression, at risk for falls Elvira Mccurdy MD INTERNAL MEDICINE - [address] [phone] Dept: [phone] Dept documented in this encounter Plan of Treatment Upcoming Encounters Date Type Department Care Team ([facility] st Contact Info) Description 10/23/2024 1:15 PM EDT Office Visit Pulmonolgy - [place] [address] [phone] Stacy Maxwell MD [address] [address] 11/05/2024 12:[address] [facility] [address] [place] [phone] Tang Pat DO [address] [address] 04/09/2025 8:45 AM EST Office Visit Internal Medicine [address] [phone] Elvira Mccurdy MD [address] [phone] Scheduled Orders Name Type Priority Associated Diagnoses Orde r Schedule MG Mammo Digital Screening bilat Imaging Routine Breast cancer screening by mammogram 1 Occurrences starting 10/02/2024 until 10/02/2025 documented as of this encounter Results * Basic metabolic panel (10/02/2024 9:17 AM EDT) Sodium 141 133 - 145 mmol/L LAB CHEMISTRY METHOD 10/02/2024 11:13 AM [facility] Potassium 4.2 3.5 - 5.5 mmol/L LAB CHEMISTRY METHOD 10/02/2024 11:13 AM [facility] Chloride 110 96 - 110 mmol/L LAB CHEMISTRY METHOD 10/02/2024 11:13 AM [facility] CO2 24 21 - 32 mmol/L LAB CHEMISTRY METHOD 10/02/2024 11:13 AM [facility] Anion Gap 7 3 - 11 LAB CHEMISTRY METHOD 10/02/2024 11:13 AM [facility] Glucose 88 70 - 100 mg/dL LAB CHEMISTRY METHOD 10/02/2024 11:13 AM [facility] BUN 17 5 - 25 mg/dL LAB CHEMISTRY METHOD 10/02/2024 11:13 AM [facility] Creatinine 0.86 0.50 - 1.10 mg/dL LAB CHEMISTRY METHOD 10/02/2024 11:13 AM [facility] eGFR 70 >=60 mL/min/1. 73m2 LAB CHEMISTRY METHOD 10/02/2024 11:13 AM EDT [facility] Comment:Calculation based on the Chronic Kidney Disease Epidemiology Collaboration (CKD-EPI) equation refit without adjustment for race. BUN/Creatinine Ratio 19.8 LAB CHEMISTRY METHOD 10/02/2024 11:13 AM [facility] Calcium 8.9 8.5 - 10.5 mg/dL LAB CHEMISTRY METHOD 10/02/2024 11:13 AM [facility] Blood Venous blood specimen / Unknown Venipuncture / Unknown 10/02/2024 9:17 AM EDT 10/02/2024 9:17 AM EDT us Elvira Mccurdy MD LAB BLOOD ORDERABLES Final Res ult [facility] [address] [place] [address], documented in this encounter Visit Diagnoses Diagnosis Breast cancer screening by mammogram- Primary Encounter for subsequent annual wellness visit (AWV) in Medicare patient Primary hypertension Unspecified essential hypertension Chronic systolic heart failure (CMS/HCC V24, [facility] V28) Chronic systolic heart failure Hypercholesterolemia Pure hypercholesterolemia Chronic obstructive pulmonary disease, unspecified COPD type (CMS/HCC V24, [facility] V28) Need for vaccination against Streptococcus pneumoniae documented in this encounter Discontinued Medications Medication Sig Discontinue Reason Start Date End Da te polyethylene glycol (Golytely) 236-22.74-6.74 -5.86 gram solution Take 4L by mouth once for one dose. May substitue any PEG. Starting at 6PM the night before your procedure drink 1 8oz glasses at your own pace until you complete half of the gallon. Finish 2nd half of the gallon 5 hours before your procedure. 08/13/2024 10/02/2024 bisacodyL (DULCOLAX) 5 mg EC tablet Take 2 tablets by mouth right before beginning bowel prep. See instructions provided by the office 08/13/2024 10/02/2024 documented as of this encounter Orders Immunization/Injection Count Last Ordered Date First Ordered Date PNEUMOCOCCAL CONJUGATE 20 VA LENT (PREVNAR 20, PCV 20) 2MO AND OLDER 1 10/02/2024 documented in this encounter Additional Health Concerns Assessment Noted Time PHQ-9 Depression Total Score: 0 10/02/19 25 5:59 PM EDT A fall risk assessment has been complete d for the patient 10/02/2024 8:27 AM EDT documented as of this encounter Care Teams Head Of Maintenance Relationship Specialty Start Date End Date Elvira Mccurdy MD [address] [place] [id number] PCP - General Internal Medicine 07/04/21 documented as of this encounter
== END 2024-10-07 13:22 | disposition home or self-care (01) ==
LOC: HO.HOP 10:51
PROVIDERS: PCP Internal Medicine; Visit Provider Psychiatry & Neurology Psychiatry
DX: F41.1 Generalized anxiety disorder (principal); F40.01 Agoraphobia with panic disorder; F32.4 Major depressive disorder, single episode, in partial remission
CPT/HCPCS: 90833; 99213

== ENCOUNTER → 2024-10-07 10:51 | Outpatient (BNVA) | payer MEDICARE, SELFPAY | PROVIDERS: PCP Internal Medicine; Visit Provider Psychiatry & Neurology Psychiatry | DX: F41.1 Generalized anxiety disorder (principal); F40.01 Agoraphobia with panic disorder; F32.4 Major depressive disorder, single episode, in partial remission | CPT/HCPCS: 99212 ==

== ENCOUNTER 2025-01-09 10:49 | Outpatient (AMB) | payer MEDICARE, SELFPAY ==
--- OUTSIDE RECORDS SUMMARY | 2025-01-09 11:27 | XMS_ITS | Clinical Summary ---
Author Organization 175 [facility] Address [address] [place] [address] Phone Care Team Providers Care Clinical Mental Health Counselor Name Role Phone Elvira Mccurdy MD Primary Care Provider [phone] Allergies No known active allergies Medications levomefolate calcium (L-METHYLFOLAT E ORAL) L-Methylfolate -Methylcobalam in 15-2 MG Cap Take by mouth. 11/03/19 23 Active albuterol HFA (PROAIR HFA ; PROVENTIL HFA ; VENTOLIN HFA) 90 mcg/actuation inhaler Inhale 2 Puffs into the lungs every 6 hours as needed for Cough or Wheezing. 09/01/19 20 Active busPIRone (BUSPAR) 10 mg tablet Take 1 Tablet by mouth 2 times daily. 2 tabs in the morning & 1 tab in the evening 11/03/19 23 Active lansoprazole (PREVACID) [address] capsule Take 1 Cap by mouth every morning (before breakfast). Active LORazepam (ATIVAN) 0.5 mg tablet 1 Tablet 2 times daily. PRN 11/14/19 15 Active sertraline (ZOLOFT) 100 mg tablet 100 mg daily. 05/20/19 14 Active clotrimazole-b etamethasone (LOTRISONE) 1-0.05 % cream PLEASE SEE ATTACHED FOR DETAILED DIRECTIONS 11/28/19 24 Active mirtazapine (REMERON) 7.5 mg tablet 08/06/19 25 Active carvediloL (COREG) 6.25 mg tablet TAKE 1 TABLET BY MOUTH EVERY 12 HOURS 180 tablet 1 09/02/19 25 Active lisinopriL (PRINIVIL,ZEST RIL) 30 mg tablet TAKE 1 TABLET BY MOUTH EVERY DAY 90 tablet 1 09/18/19 25 Active fluticasone furoate-vilant Nino (Breo Ellipta) 100-25 mcg/dose inhaler Inhale 1 puff by mouth 1 (one) time each day. 1 each 3 11/13/19 25 Active atorvastatin (LIPITOR) 20 mg tablet Take 1 tablet (20 mg total) by mouth 1 (one) time each day. 90 tablet 1 11/18/19 25 Active amLODIPine (NORVASC) 5 mg tablet TAKE 1 TABLET BY MOUTH EVERY DAY 90 tablet 2 12/30/19 25 Active amLODIPine (NORVASC) 5 mg tablet TAKE 1 TABLET BY MOUTH EVERY DAY 90 tablet 2 04/21/20 24 025 Discontinued Active Problems Problem Noted Date Diagnosed Date [...] asses her heart function and valve disease. Assessment & Plan (10/02/2024 9:23 AM EDT): Orders: Basic metabolic panel; Future CBC and differential; Future Stevenson's esophagus 08/06/2017 Hypercholesterolemia 08/06/2017 Overview (02/27/2024): Last Assessment & Plan: Last LDL 53. Continue atorvastatin. Assessment & Plan (10/02/2024 9:23 AM EDT): Orders: Basic metabolic panel; Future CBC and differential; Future Hypertension 08/06/2017 Overview (02/27/2024): Last Assessment & [...] healthy weight, regular exercise, and not smoking. Assessment & Plan (10/02/2024 9:23 AM EDT): Orders: Basic metabolic panel; Future CBC and differential; Future Anxiety 09/08/2016 COPD (chronic obstructive pu lmonary disease) ([facility] V24, [facility] V28) 09/08/2016 Assessment & Plan (10/02/2024 9:23 AM EDT): Orders: Basic metabolic panel; Future CBC and differential; Future Hyperparathyroidism ([facility] V24) 08/31/2016 Benign paroxysmal positional vertigo 11/27/2014 Allergic rhinitis 08/28/2014 GERD (gastroesophageal reflux disease) 5 Actinic keratosis 12/11/2013 Adrenal adenoma 11/18/2013 Alopecia 09/02/2012 Insomnia 04/24/2012 Meralgia paresthetica 11/01/2010 Encounters Date Type Department Care Team Description 11/05/2024 12:46 PM EDT Anesthesia Event [facility] Endoscopy [address] [place] [phone] Tim Dickerson DO 11/05/2024 11:35 AM EDT - 11/05/2024 11:59 PM EDT Hospital Encounter [facility] Endoscopy [address] [place] [address] Prem Pat DO Korobkov, Vitaliy, DO Guerin, Erik R, CRNA Stevenson's esophagus Discharge Disposition: Home or Self Care 11/03/2024 7:32 AM EDT - 11/03/2024 11:59 PM EDT [facility] En[facility] [address] [place] [address] Breast cancer screening by mammogram Discharge Disposition: Home or Self Care 10/23/2024 1:15 PM EDT Office Visit Pulmonology [facility] [address] [place] [phone] Stacy Maxwell MD Gastroesophageal reflux disease without esophagitis (Primary Dx); Obesity (BMI 30.0-34.9); Pulmonary emphysema, unspecified emphysema type (CMS/HCC V24, CMS/HCC V28) from Last 3 Months Immunizations Name Administration Dates Next Due DTaP (Infanrix) 6wks to less than 7yo 08/19/2013 Influenza, Unspecified 01/20/2021 Pneumococcal conjugate 20 va lent (Prevnar 20, PCV 20) 2mo and older 10/02/2024 Pneumococcal polysaccharide 23 valent (Pneumovax 23) 2yo and older 07/12/2011 Tdap Tetanus diptheria acell ular pertussis (Boostrix; Adacel) 7yo and older 11/16/2012 Surgical History Surgery Date Site/Laterality Comments OTHER SURGICAL HISTORY PROCEDURE: HISTORY OTHER; COMMENT: Renny fundoplication COLONOSCOPY 07/07/2008 PROCEDURE: HISTORICAL COLONOSCOPY; COMMENT: Diverticulosis. Repeat 10 yrs UPPER GASTROINTESTINAL ENDOSCOPY 01/28/2015 PROCEDURE: NE UPPER GI ENDOSCOPY PERFORMED; COMMENT: Stevenson's mucosa w/ focal intestinal metaplasia negative for dysplasia, Rpt 3 yrs BREAST CYST ASPIRATION Bilateral Medical History Medical History Date Comments History [...] reflux disease) Hypercholesterolemia 08/06/2017 DX:Hypercho lesterolemia Hyperparathyroidism ([facility] V24) 08/31/2016 DX:Hyperparathyroidism ([facility]) Hypertension 08/06/2017 DX:Hypertension Insomnia 04/24/2012 DX:Insomnia Meralgia paresthetica 11/01/2010 DX:Meralgi a paresthetica COPD (chronic obstructive pu lmonary disease) ([facility] V24, [facility] V28) 09/08/2016 DX:COPD (chronic o bstructive pulmonary disease) ([facility]) Family History Medical History Relation Name Comments Hypertension Brother Colon cancer Mother Heart attack Mother Breast cancer Mother's Sister Coronary artery disease Sister Hypertension Sister Relation Name Status Comments Brother Mother Mother's Sister Alive Sister Social History Tobacco Use Types Packs/Day Years Used Date Smoking Tobacco: Never Smokeless Tobacco: Never Alcohol Use Standard Drinks/Week Comments No 0 (1 standard drink = 0.6 oz pur e alcohol) Interpersonal Safety Answer Date Record ed Physical Abuse 11/05/2024 Verbal Abuse 11/05/2024 Comments No Sex and Gender Information Value Date Recorded Sex Assigned at Not on file Legal Sex Female 4:11 AM EST Gender Identity Female 10/28/2024 12:46 PM EDT Sexual Orientation Not on file Obstetrics History Last Filed Vital Signs Vital Sign Reading Time Taken Comments Blood Pressure 113/78 11/05/2024 1:22 PM EDT Pulse 77 11/05/2024 1:22 PM EDT Temperature 36.3 C (97.3 F) 11/05/2024 1:02 PM EDT Respiratory Rate 15 11/05/2024 1:22 PM EDT Oxygen Saturation 96% 11/05/2024 1:22 PM EDT Inhaled Oxygen Concentration - - Weight 76.2 kg (168 lb) 11/05/2024 12:11 PM EDT Height 152.4 cm (5') 11/05/2024 12:11 PM EDT Body Mass Index 32.81 11/05/2024 12:11 PM EDT Plan of Treatment Upcoming Encounters Date Type Department Care Team (Late st Contact Info) Description 01/28/2025 8:00 AM EDT Office Visit Pulmonology - [place] [address] [place] [phone] Stacy Maxwell MD [address] [place] [phone] 04/09/2025 8:45 AM EST Office Visit Internal Medicine - [place] [facility] [address] [place] [phone] Elvira Mccurdy MD 175 [facility] [address] [place] [phone] Health Maintenance Due Date Last Done Comments Zoster Vaccines (1 of 2) 08/16/1967 COVID-19 Vaccine (2 - Pfizer risk series) 07/18/2020 06/27/2020 Hepatitis C Screening 04/01/2022 Osteoporosis Screening (Bone Density Screening) 04/01/2022 Social Influencers of Health Screening 04/01/2022 RSV Immunization Adult Patients (1 - 1-dose 75+ series) 08/16/2023 DTaP,Tdap,and Td Vaccines (3 - Td or Tdap) 08/20/2023 08/19/2013, 11/16/2012 Influenza Vaccine (#1) 2024 , 02/04/2020, 04/30/2019, Additional history exists Hypertension/CHF/CAD Annual BMP Blood Test 10/02/2025 10/02/2024, 04/02/2024, 09/27/2023, Additional history exists Medicare Annual Wellness Visit 10/02/2025 10/02/2024 Falls Risk Assessment 11/05/2025 11/05/2024 , 10/02/2024, 09/26/2023 Colorectal Cancer Screening: Colonoscopy 08/28/2027 08/27/2024, 08/27/2024, 09/24/2018 Cholesterol Screening (Lipid Panel) 04/02/2029 04/02/2024, 09/27/2023, 09/27/2023 Depression Screening Completed 10/01/2024, 09/26/19 Pneumococcal Vaccine: 50+ Years Completed 10/02/2024, 01/23/2018, 07/12/2011 Breast Cancer Screening Discontinued 11/03/2024 HIB Vaccines Aged Out No longer eligi [...] Procedure Name Priority Date/Time Associated Diagnosis Comments EGD Routine 11/05/2024 1:01 PM EDT Stevenson's esophagus TISSUE EXAM Routine 11/05/2024 12:54 PM EDT Stevenson's esophagus EXTERNAL ENDOSCOPY REPORT 11/05/2024 MG MAMMO DIGITAL SCREENING W ADDISON BILAT Routine 11/03/2024 7:50 AM EDT Breast cancer screening by mammogram BASIC METABOLIC PANEL Routine 10/02/2024 9:17 AM EDT Breast cancer screening by mammogram Encounter for subsequent annual wellness visit (AWV) in Medicare patient Primary hypertension Chronic systolic heart failure (CMS/HCC V24, CMS/HCC V28) Hypercholesterolemia Chronic obstructive pulmonary disease, unspecified COPD type (CMS/HCC V24, CMS/HCC V28) COLONOSCOPY Routine 08/27/2024 9:28 AM EDT Family history of colon cancer in mother LIPID PANEL WITH REFLEX TO DIRECT LDL Routine 04/02/2024 9:47 AM EST Screening for colorectal cancer Chronic systolic heart failure (CMS/HCC V24, CMS/HCC V28) Hypercholesterolemia Primary hypertension DEPRESSION SCREENING Routine 09/26/2023 FALLS RISK ASSESSMENT Routine 09/26/2023 from Last 3 Months or Most Recently Relevant to Health Maintenance Results * EGD Anesthesia - MAC; SP ENDOSCOPY (11/05/2024 1:01 PM EDT) Anatomical Region Laterality Modality Endoscopy 11/05/2024 12:4 5 PM EDT Impressions 11/05/2024 12:59 PM EDT - Erythematous mucosa in the stomach. Biopsied. - A few gastric polyps. Resected and retrieved. - Normal examined duodenum. - 3 cm hiatal hernia. Recommendation: - Discharge patient to home. - Resume previous diet. - Continue present medications. - Await pathology results. Narrative 11/05/2024 12:59 PM EDT [facility] GI Patient Name: Sidney Pond Procedure Date: 11/05/2024 12:45 PM Date of : 1950 Age: 74 Gender: Female Note Status: Finalized Attending MD: Prem Pat DO, [id number] Procedure Date No Time: 11/05/2024 Procedure: Upper GI endoscopy Indications: Heartburn Providers: Prem Pat DO Referring MD: Elvira Mccurdy MD Medicines: Monitored Anesthesia Care Complications: No immediate complications. Estimated blood loss: Minimal. Estimated Blood Loss: Estimated blood loss was minimal. Procedure: Pre-Anesthesia Assessment: - - Prior to the procedure, a History and Physical was performed, and patient medications and allergies were reviewed. The patient is competent. The risks and benefits of the procedure and the sedation options and risks were discussed with the patient. All questions were answered and informed consent was obtained. Patient identification and proposed procedure were verified by the physician, the nurse, the anesthesiologist, the primary school principal and the echo technician in the pre-procedure area in the endoscopy suite. Mental Status Examination: alert and oriented. Airway Examination: normal oropharyngeal airway and neck mobility. Respiratory Examination: clear to auscultation. CV Examination: normal. Prophylactic Antibiotics: The patient does not require prophylactic antibiotics. Prior Anticoagulants: The patient has taken no anticoagulant or antiplatelet agents. ASA Grade Assessment: II - A patient with mild systemic disease. After reviewing the risks and benefits, the patient was deemed in satisfactory condition to undergo the procedure. The anesthesia plan was to use monitored anesthesia care (MAC). Immediately prior to administration of medications, the patient was re-assessed for adequacy to receive sedatives. The heart rate, respiratory rate, oxygen saturations, blood pressure, adequacy of pulmonary ventilation, and response to care were monitored throughout the procedure. The physical status of the patient was re-assessed after the procedure. After obtaining informed consent, the endoscope was passed under direct vision. Throughout the procedure, the patient's blood pressure, pulse, and oxygen saturations were monitored continuously.The Endoscope was introduced through the mouth, and advanced to the second part of duodenum. The upper GI endoscopy was accomplished without difficulty. The patient tolerated the procedure well. Findings: The Z-line was irregular and was found 38 cm from the incisors. Biopsies were taken with a cold forceps for histology. Estimated blood loss was minimal. Diffuse moderately erythematous mucosa without bleeding was found in the stomach. Biopsies were taken with a cold forceps for histology. Estimated blood loss was minimal. A few sessile polyps with no stigmata of recent bleeding were found in the entire examined stomach. The polyp was removed with a cold snare. Resection and retrieval were complete. Estimated blood loss was minimal. The examined duodenum was normal. A 3 cm hiatal hernia was present. Procedure Code(s): --- Professional --- 85443, Esophagogastroduodenoscopy, flexible, transoral; with removal of tumor(s), polyp(s), or other lesion(s) by snare technique [id number], 59, Esophagogastroduodenoscopy, flexible, transoral; with biopsy, single or multiple Diagnosis Code(s): --- Professional --- K31.89, Other diseases of stomach and duodenum K31.7, Polyp of stomach and duodenum K44.9, Diaphragmatic hernia without obstruction or gangrene R12, Heartburn CPT copyright 2020 [employer]. All rights reserved. The codes documented in this report are preliminary and upon inpatient coder review may be revised to meet current compliance requirements. PREM Pat DO 11/05/2024 12:58:53 PM This report has been signed electronically.Prem Pat DO Number of Addenda: 0 Note Initiated On: 11/05/2024 12:45 PM Scope In: Scope Out: Endoscopy Department at [facility] - [address] [place] [phone] Procedure Note Prem Pat DO - 11/05/2024 [facility] GI Patient Name: Sidney Pond Procedure Date: 11/05/2024 12:45 PM Date of : 1950 Age: 74 Gender: Female Note Status: Finalized Attending MD: Prem Pat DO, [id number] Procedure Date No Time: 11/05/2024 Procedure: Upper GI endoscopy Indications: Heartburn Providers: Prem Pat DO Referring MD: Elvira Mccurdy MD Medicines: Monitored Anesthesia Care Complications: No immediate complications. Estimated blood loss: Minimal. Estimated Blood Loss: Estimated blood loss was minimal. Procedure: Pre-Anesthesia Assessment: - - Prior to the procedure, a History and Physicalwas performed, and patient medications and allergieswere reviewed. The patient is competent. The risks and benefits of the procedure and the sedation optionsand risks were discussed with the patient. Allquestions were answered and informed consent was obtained. Patient identification and proposed procedure were verified by the physician, the nurse, the anesthesiologist, the primary school principal and thetechnician in the pre-procedure area in the endoscopy suite. Mental Status Examination: alert and oriented.Airway Examination: normal oropharyngeal airway and neck mobility. Respiratory Examination: clear to auscultation. CV Examination: normal. Prophylactic Antibiotics: The patient does not requireprophylactic antibiotics. Prior Anticoagulants: The patient has taken no anticoagulant or antiplatelet agents. ASA Grade Assessment: II - A patient with mild systemic disease. After reviewing the risks and benefits,the patient was deemed in satisfactory condition to undergo the procedure. The anesthesia plan was touse monitored anesthesia care (MAC). Immediately priorto administration of medications, the patient was re-assessed for adequacy to receive sedatives. The heart rate, respiratory rate, oxygen saturations, blood pressure, adequacy of pulmonary ventilation,and response to care were monitored throughout the procedure. The physical status of the patient was re-assessed after the procedure. After obtaining informed consent, the endoscope was passed under direct vision. Throughout theprocedure, the patient's blood pressure, pulse, and oxygen saturations were monitored continuously.TheEndoscope was introduced through the mouth, and advanced tothe second part of duodenum. The upper GI endoscopy was accomplished without difficulty. The patienttolerated the procedure well. Findings: The Z-line was irregular and was found 38 cm fromthe incisors. Biopsies were taken with a cold forcepsfor histology. Estimated blood loss was minimal. Diffuse moderately erythematous mucosa without bleeding was found in the stomach. Biopsies weretaken with a cold forceps for histology. Estimated blood loss was minimal. A few sessile polyps with no stigmata of recent bleeding were found in the entire examined stomach. The polyp was removed with a cold snare. Resectionand retrieval were complete. Estimated blood loss was minimal. The examined duodenum was normal. A 3 cm hiatal hernia was present. Procedure Code(s): --- Professional --- 87689, Esophagogastroduodenoscopy, flexible, transoral; with removal of tumor(s), polyp(s), or other lesion(s) by snare technique [id number], 59, Esophagogastroduodenoscopy, flexible, transoral; with biopsy, single or multiple Diagnosis Code(s): --- Professional --- K31.89, Other diseases of stomach and duodenum K31.7, Polyp of stomach and duodenum K44.9, Diaphragmatic hernia without obstruction or gangrene R12, Heartburn CPT copyright 2020 [employer]. All rights reserved. The codes documented in this report are preliminary and upon inpatient coder reviewmay be revised to meet current compliance requirements. PREM Pat DO 11/05/2024 12:58:53 PM This report has been signed electronically.Prem Pat DO Number of Addenda: 0 Note Initiated On: 11/05/2024 12:45 PM Scope In: Scope Out: Endoscopy Department at [facility] - [address] [place] [phone] IMPRESSION: - Erythematous mucosa in the stomach. Biopsied. - A few gastric polyps. Resected and retrieved. - Normal examined duodenum. - 3 cm hiatal hernia. Recommendation: - Discharge patient to home. - Resume previous diet. - Continue present medications. - Await pathology results. Prem Pat DO GI~PROCEDURE ORDERABLES Final Re sult * Tissue exam (11/05/2024 12:54 PM EDT) Final Diagnosis A. Gastric, Body, multiple polyps: Benign fundic gland polyps. B. Gastric, Body, random biopsies: Oxyntic type gastric mucosa with changes suggestive of PPI effect. No Helicobacter pylori type gastritis identified. C. Esophagus, ge junction, biopsies: Stevenson's esophagus. Negative for dysplasia. 11/06/2024 1:08 PM EDT [facility] Gross Description A. Gastric, Body, multiple polyps: Labeled gastric polyp, multiple . Received in formalin are nine irregular to polypoid hanson mucosal tissue fragments, ranging from 0.2 cm to 0.8 cm in greatest dimension. The larger polypoid fragments are inked and bisected. The specimen is wrapped in paper and entirely submitted in two cassettes, six pieces in five pieces, respectively, multiple levels on each slide. B. Gastric, Body, random biopsies: Labeled gastric body, random . Received in formalin are four irregular hanson mucosal tissue fragments, ranging from 0.1 cm to 0.3 cm in greatest dimension, which are wrapped in paper and submitted in toto in one cassette, four pieces, multiple levels on one slide. C. Esophagus, ge junction biopsies: Labeled esophagus, GE junction . Received in formalin are two irregular pink-red mucosal tissue fragments, each measuring approximately 0.2 cm in greatest dimension, which are wrapped in paper and submitted in toto in one cassette, two pieces, multiple levels on one slide. JAIRO 11/06/2024 1:08 PM EDT [facility] Disclaimer Unless otherwise specified, all tissue is 10% NB formalin fixed and paraffin embedded. 11/06/2024 1:08 PM T [facility] Tissue Gastric corpus structure / Unknown 11/05/2024 12:54 PM EDT 11/05/2024 1:28 PM EDT Tissue specimen (specimen) Gastric corpus structure / Unknown 11/05/2024 12:55 PM EDT 11/05/2024 1:28 PM EDT Tissue specimen (specimen) Esophageal structure / Unknown 11/05/2024 12:57 PM EDT 11/05/2024 1:28 PM EDT Prem Pat DO LAB PATHOLOGY ORDERABLES Final R esult [email or web address] [address] [place] [address], [place] [phone] * External Endoscopy (11/05/2024) Anatomical Region Laterality Modality Endoscopy us Provider [facility] GI~PROCEDURE ORDERABLES Final Result * MG Mammo Digital Screening w Addison bilat (11/03/2024 7:50 AM EDT) Anatomical Region Laterality Modality Breast Bilateral Mammography 11/04/2024 1:40 PM EDT Impressions 11/04/2024 1:47 PM EDT No mammographic evidence of malignancy. No suspicious interval change. A negative mammogram in the presence of a clinically suspicious palpable abnormality does not preclude the possibility of malignancy or alter the indications for biopsy. ASSESSMENT: BI-RADS 2: BENIGN RECOMMENDATION(S): 1: Routine screening mammogram BILATERAL in 1 year. Mammography location: [facility] [address] [place], [address] -------- FINAL REPORT -------- Dictated By: Herbie Downing Dictated Date: 11/04/2024 13:40 ET Assigned Physician: Herbie Downing Reviewed and Electronically Signed By: Herbie Downing Signed Date: 11/04/2024 13:47 ET Workstation ID: [id number] Transcribed By: Self Edit Transcribed Date: 11/04/2024 13:40 ET Narrative 11/04/2024 1:47 PM EDT EXAM: SCREENING MAMMOGRAPHY, BILATERAL HISTORY: SCREENING. Maternal aunt with history of breast cancer. COMPARISON: 09/07/22, 04/09/20 TECHNIQUE: Synthesized CC and MLO projections of each breast. Tomosynthesis of each breast in the CC and MLO projections. ADDITIONAL IMAGING: None Computer-aided detection was employed with the [employer] AI 3-D. TISSUE DENSITY: There are scattered areas of fibroglandular density. (BI-RADS category B) FINDINGS: RIGHT BREAST: No suspicious mass. No distortion. Unchanged diffuse large jose rafael calcifications. No new suspicious right breast finding LEFT BREAST: No suspicious mass. There is an unchanged oval circumscribed mass with coarse calcifications in the 12 o'clock position consistent with degenerating fibroadenoma. There is no distortion. There are unchanged diffuse large right calcifications. No new suspicious left breast finding Procedure Note Herbie Downing MD - 11/04/2024 EXAM: SCREENING MAMMOGRAPHY, BILATERAL HISTORY: SCREENING. Maternal aunt with history of breast cancer. COMPARISON: 09/07/22, 04/09/20 TECHNIQUE: Synthesized CC and MLO projections of each breast.Tomosynthesis of each breast in the CC and MLO projections. ADDITIONAL IMAGING: None Computer-aided detection was employed with the [employer] AI 3-D. TISSUE DENSITY: There are scattered areas of fibroglandular density.(BI-RADS category B) FINDINGS: RIGHT BREAST: No suspicious mass. No distortion. Unchanged diffuse large jose rafael calcifications. No new suspicious right breast finding LEFT BREAST: No suspicious mass. There is an unchanged oval circumscribed mass withcoarse calcifications in the 12 o'clock position consistent withdegenerating fibroadenoma. There is no distortion. There are unchanged diffuse large right calcifications. No new suspicious left breast finding IMPRESSION: No mammographic evidence of malignancy. No suspicious interval change. A negative mammogram in the presence of a clinically suspicious palpableabnormality does not preclude the possibility of malignancy or alter theindications for biopsy. ASSESSMENT: BI-RADS 2: BENIGN RECOMMENDATION(S): 1: Routine screening mammogram BILATERAL in 1 year. Mammography location: [facility] at [address], [address] -------- FINAL REPORT -------- Dictated By: Herbie Downing Dictated Date: 11/04/2024 13:40 ET Assigned Physician: Herbie Downing Reviewed and Electronically Signed By: Herbie Downing Signed Date: 11/04/2024 13:47 ET Workstation ID: [id number] Transcribed By: Self Edit Transcribed Date: 11/04/2024 13:40 ET Elvira Mccurdy MD IMG BI PROCEDURES Final Result * Basic metabolic panel (10/02/2024 9:17 AM EDT) Sodium 141 133 - 145 mmol/L LAB CHEMISTRY METHOD 10/02/2024 11:13 AM [facility] Potassium 4.2 3.5 - 5.5 mmol/L LAB CHEMISTRY METHOD 10/02/2024 11:13 AM [facility] Chloride 110 96 - 110 mmol/L LAB CHEMISTRY METHOD 10/02/2024 11:13 AM [facility] CO2 24 21 - 32 mmol/L LAB CHEMISTRY METHOD 10/02/2024 11:13 AM [facility] Anion Gap 7 3 - 11 LAB CHEMISTRY METHOD 10/02/2024 11:13 AM [facility] Glucose 88 70 - 100 mg/dL LAB CHEMISTRY METHOD 10/02/2024 11:13 AM [facility] BUN 17 5 - 25 mg/dL LAB CHEMISTRY METHOD 10/02/2024 11:13 AM [facility] Creatinine 0.86 0.50 - 1.10 mg/dL LAB CHEMISTRY METHOD 10/02/2024 11:13 AM [facility] eGFR 70 >=60 mL/min/1. 73m2 LAB CHEMISTRY METHOD 10/02/2024 11:13 AM [facility] Comment:Calculation based on the Chronic Kidney Disease Epidemiology Collaboration (CKD-EPI) equation refit without adjustment for race. BUN/Creatinine Ratio 19.8 LAB CHEMISTRY METHOD 10/02/2024 11:13 AM EDT [facility] Calcium 8.9 8.5 - 10.5 mg/dL LAB CHEMISTRY METHOD 10/02/2024 11:13 AM EDT [facility] Blood Venous blood specimen / Unknown Venipuncture / Unknown 10/02/2024 9:17 AM EDT 10/02/2024 9:17 AM EDT us Elvira Mccurdy MD LAB BLOOD ORDERABLES Final Res ult [facility] [address] [place] [address], * COLONOSCOPY Anesthesia - MAC; [facility] [email or web address] ENDOSCOPY (08/27/2024 9:28 AM EDT) Anatomical Region Laterality Modality Endoscopy 08/27/2024 9:01 AM EDT Impressions 08/27/2024 9:30 AM EDT - Six 5 to 9 mm polyps in the descending colon and in the transverse colon, removed using injection-lift and a hot snare. Resected and retrieved. - One 3 mm polyp in the rectum, removed with a jumbo cold forceps. Resected and retrieved. - Hemorrhoids found on perianal exam. Recommendation: - - Discharge patient to home. - High fiber diet. - Continue present medications. - Await pathology results. - Repeat colonoscopy for surveillance based on pathology results. - Patient is 4 years overdue for SSBE surveillance, EGD to be booked. Narrative 08/27/2024 9:30 AM EDT [facility] GI Patient Name: Sidney Pond Procedure Date: 08/27/2024 9:01 AM Date of : 1950 Age: 74 Gender: Female Note Status: Finalized Attending MD: Prem Pat DO, [id number] Procedure Date No Time: 08/27/2024 Procedure: Colonoscopy Indications: Screening for colorectal malignant neoplasm, high risk, family history in mother Providers: Prem Pat DO Referring MD: Elvira Mccurdy MD Medicines: Monitored Anesthesia Care Complications: No immediate complications. Estimated blood loss: Minimal. Estimated Blood Loss: Estimated blood loss was minimal. Procedure: Pre-Anesthesia Assessment: - - Prior to the procedure, a History and Physical was performed, and patient medications and allergies were reviewed. The patient is competent. The risks and benefits of the procedure and the sedation options and risks were discussed with the patient. All questions were answered and informed consent was obtained. Patient identification and proposed procedure were verified by the physician, the nurse, the anesthesiologist, the primary school principal and the echo technician in the pre-procedure area in the endoscopy suite. Mental Status Examination: alert and oriented. Airway Examination: normal oropharyngeal airway and neck mobility. Respiratory Examination: clear to auscultation. CV Examination: normal. Prophylactic Antibiotics: The patient does not require prophylactic antibiotics. Prior Anticoagulants: The patient has taken no anticoagulant or antiplatelet agents. ASA Grade Assessment: II - A patient with severe systemic disease. After reviewing the risks and benefits, the patient was deemed in satisfactory condition to undergo the procedure. The anesthesia plan was to use monitored anesthesia care (MAC). Immediately prior to administration of medications, the patient was re-assessed for adequacy to receive sedatives. The heart rate, respiratory rate, oxygen saturations, blood pressure, adequacy of pulmonary ventilation, and response to care were monitored throughout the procedure. The physical status of the patient was re-assessed after the procedure. After I obtained informed consent, the scope was passed under direct vision. Throughout the procedure, the patient's blood pressure, pulse, and oxygen saturations were monitored continuously.The Colonoscope was introduced through the anus and advanced to the cecum, identified by appendiceal orifice and ileocecal valve. The colonoscopy was performed without difficulty. The patient tolerated the procedure well. The quality of the bowel preparation was good. The ileocecal valve, appendiceal orifice, and rectum were photographed. Findings: Six sessile polyps were found in the descending colon and transverse colon. The polyps were 5 to 9 mm in size. These polyps were removed with a cold snare. Resection and retrieval were complete. Verification of patient identification for the specimen was done. Estimated blood loss was minimal. A 3 mm polyp was found in the rectum. The polyp was sessile. The polyp was removed with a jumbo cold forceps. Resection and retrieval were complete. Verification of patient identification for the specimen was done. Estimated blood loss was minimal. Hemorrhoids were found on perianal exam. Procedure Code(s): --- Professional --- 88446, Colonoscopy, flexible; with removal of tumor(s), polyp(s), or other lesion(s) by snare technique 15602, 59, Colonoscopy, flexible; with biopsy, single or multiple Diagnosis Code(s): --- Professional --- D12.4, Benign neoplasm of descending colon D12.3, Benign neoplasm of transverse colon (hepatic flexure or splenic flexure) Z12.11, Encounter for screening for malignant neoplasm of colon D12.8, Benign neoplasm of rectum K64.9, Unspecified hemorrhoids CPT copyright 2020 [employer]. All rights reserved. The codes documented in this report are preliminary and upon inpatient coder review may be revised to meet current compliance requirements. PREM Pat DO 08/27/2024 9:30:07 AM This report has been signed electronically.Prem Pat DO Number of Addenda: 0 Note Initiated On: 08/27/2024 9:01 AM Scope Withdrawal Time: 0 hours 7 minutes 56 seconds Scope In: 9:15:05 AM Scope Out: 9:26:53 AM Endoscopy Department at [facility] - [address] [place] [id number] Procedure Note Prem Pat DO - 08/27/2024 [facility] GI Patient Name: Sidney Pond Procedure Date: 08/27/2024 9:01 AM Date of : 1950 Age: 74 Gender: Female Note Status: Finalized Attending MD: Prem Pat DO, [id number] Procedure Date No Time: 08/27/2024 Procedure: Colonoscopy Indications: Screening for colorectal malignant neoplasm, high risk, family history in mother Providers: Prem Pat DO Referring MD: Elvira Mccurdy MD Medicines: Monitored Anesthesia Care Complications: No immediate complications. Estimated blood loss: Minimal. Estimated Blood Loss: Estimated blood loss was minimal. Procedure: Pre-Anesthesia Assessment: - - Prior to the procedure, a History and Physicalwas performed, and patient medications and allergieswere reviewed. The patient is competent. The risks and benefits of the procedure and the sedation optionsand risks were discussed with the patient. Allquestions were answered and informed consent was obtained. Patient identification and proposed procedure were verified by the physician, the nurse, the anesthesiologist, the primary school principal and thetechnician in the pre-procedure area in the endoscopy suite. Mental Status Examination: alert and oriented.Airway Examination: normal oropharyngeal airway and neck mobility. Respiratory Examination: clear to auscultation. CV Examination: normal. Prophylactic Antibiotics: The patient does not requireprophylactic antibiotics. Prior Anticoagulants: The patient has taken no anticoagulant or antiplatelet agents. ASA Grade Assessment: II - A patient with severesystemic disease. After reviewing the risks and benefits,the patient was deemed in satisfactory condition to undergo the procedure. The anesthesia plan was touse monitored anesthesia care (MAC). Immediately priorto administration of medications, the patient was re-assessed for adequacy to receive sedatives. The heart rate, respiratory rate, oxygen saturations, blood pressure, adequacy of pulmonary ventilation,and response to care were monitored throughout the procedure. The physical status of the patient was re-assessed after the procedure. After I obtained informed consent, the scope was passed under direct vision. Throughout theprocedure, the patient's blood pressure, pulse, and oxygen saturations were monitored continuously.The Colonoscope was introduced through the anus and advanced to the cecum, identified by appendiceal orifice and ileocecal valve. The colonoscopy was performed without difficulty. The patient tolerated the procedure well. The quality of the bowel preparation was good. The ileocecal valve,appendiceal orifice, and rectum were photographed. Findings: Six sessile polyps were found in the descendingcolon and transverse colon. The polyps were 5 to 9 mm in size. These polyps were removed with a cold snare. Resection and retrieval were complete. Verificationof patient identification for the specimen was done. Estimated blood loss was minimal. A 3 mm polyp was found in the rectum. The polyp was sessile. The polyp was removed with a jumbo cold forceps. Resection and retrieval were complete. Verification of patient identification for the specimen was done. Estimated blood loss wasminimal. Hemorrhoids were found on perianal exam. Procedure Code(s): --- Professional --- 93785, Colonoscopy, flexible; with removal of tumor(s), polyp(s), or other lesion(s) by snare technique 29939, 59, Colonoscopy, flexible; with biopsy,single or multiple Diagnosis Code(s): --- Professional --- D12.4, Benign neoplasm of descending colon D12.3, Benign neoplasm of transverse colon (hepatic flexure or splenic flexure) Z12.11, Encounter for screening for malignantneoplasm of colon D12.8, Benign neoplasm of rectum K64.9, Unspecified hemorrhoids CPT copyright 2020 [employer]. All rights reserved. The codes documented in this report are preliminary and upon inpatient coder reviewmay be revised to meet current compliance requirements. PREM Pat DO 08/27/2024 9:30:07 AM This report has been signed electronically.Prem Pat DO Number of Addenda: 0 Note Initiated On: 08/27/2024 9:01 AM Scope Withdrawal Time: 0 hours 7 minutes 56 seconds Scope In: 9:15:05 AM Scope Out: 9:26:53 AM Endoscopy Department at [facility] - [address] [place] [id number] IMPRESSION: - Six 5 to 9 mm polyps in the descending colon and in the transverse colon, removed using injection-liftand a hot snare. Resected and retrieved. - One 3 mm polyp in the rectum, removed with ajumbo cold forceps. Resected and retrieved. - Hemorrhoids found on perianal exam. Recommendation: - - Discharge patient to home. - High fiber diet. - Continue present medications. - Await pathology results. - Repeat colonoscopy for surveillance based on pathology results. - Patient is 4 years overdue for SSBE surveillance, EGD to be booked. Cesar Grimes MD GI~PROCEDURE ORDERABLES Final Re sult * Lipid panel with reflex to direct LDL (04/02/2024 9:47 AM EST) Cholesterol 155 0 - 200 mg/dL LAB CHEMISTRY METHOD 04/02/2024 3:10 PM EST [facility] Triglycerides 107 0 - 150 mg/dL LAB CHEMISTRY METHOD 04/02/2024 3:10 PM EST [facility] HDL 73 >=40 mg/dL LAB CHEMISTRY METHOD 04/02/2024 3:10 PM EST [facility] LDL Calculated 61 0 - 100 mg/dL LAB CHEMISTRY METHOD 04/02/2024 3:10 PM EST [facility] VLDL Cholesterol Bi 21.4 mg/dL LAB CHEMISTRY METHOD 04/02/2024 3:10 PM EST [facility] Non HDL Chol. (LDL+VLDL) 82 <145 mg/dL LAB CHEMISTRY METHOD 04/02/2024 3:10 PM EST [facility] Chol/HDL Ratio 2.1 0.0 - 4.4 LAB CHEMISTRY METHOD 04/02/2024 3:10 PM EST [facility] Blood Venous blood specimen / Unknown Venipuncture / Unknown 04/02/2024 9:47 AM EST 04/02/2024 9:47 AM EST Elvira Mccurdy MD LAB BLOOD ORDERABLES Final Res ult [facility] [address] [place] [address], * Falls Risk Assessment (09/26/2023) Falls Risk Assessment Abstracted Historical Provider HEALTH MAINTENANCE Final Result * Depression Screening (09/26/2023) Depression Screening Abstracted Historical Provider HEALTH MAINTENANCE Final Result from Last 3 Months or Most Recently Relevant to Health Maintenance Insurance MEDICARE [facility] Care Teams Clinical Mental Health Counselor Relationship Specialty Start Date End Date Elvira Mccurdy MD [address] [facility] [address] [place] [address] PCP - General Internal Medicine 07/04/21
--- OUTSIDE RECORDS SUMMARY | 2025-01-09 11:27 | XMS_ITS ---
Author Name [facility] Organization Unknown Care Team Organization Name Specialty Phone Email Start Date End Da te [facility] 12/10/2024 [facility] 02/28/2022 12/10/19 24
--- OUTSIDE RECORDS SUMMARY | 2025-01-09 11:27 | XMS_ITS | Clinical Summary ---
Author Organization [facility] Address [address] [place] [address] Care Team Providers Care Singing Telegram Performer Name Role Phone Cesar Grimes MD Primary Care Provider [phone] Allergies No known active allergies Medications Medication [...] (two) times a day. 0 Active Umeclidinium Blodgett 62.5 MCG/INH AEPB Inhale into the lungs. [...] 90 08/06/2020 11:07 AM EDT Temperature 36.4 C (97.6 F) 08/06/2020 11:07 AM EDT Respiratory Rate - - Oxygen Saturation 98% [...] Depression Screening 1960 Preventative Health Evaluation 1966 Shingrix-Zoster Vaccine (1 o f 2) 1998 Fall Risk Assessment 2013 Osteoporosis Screening (DEXA Scan) 2013 Pneumococcal Vaccine (2 of 2 - PCV) 2013 07/12/2011 RSV Adult > 60+ Yrs or (1 - 1-dose 75+ series) 08/16/2023 DTap / Tdap / Td (3 - Td or Tdap) 08/20/2023 08/19/2013, 11/16/2012 Influenza Vaccine (#1) 2024 Hepatitis B Vaccines Aged Out No long er eligible based on patient's age to complete this topic RSV Ped < 20 months Aged Out No longe r eligible based on patient's age to complete this topic Care Teams Singing Telegram Performer Relationship Specialty Start Date End Date Cesar Grimes MD [address] [facility] [address] [place] [address] PCP - General Gastroenterology 07/20/20
--- NOTE | 2025-01-09 11:41 | A.OFFPSYCH_ITS ---
Intake Intake Visit Reasons: depression Allergies No Known Allergies Allergy (Verified 09/25/22 13:43) Medication List - Last Reconciled 01/09/25 by Joe Chandler MD atorvastatin 20 mg PO DAILY budesonide-formoterol 160-4.5 mcg/actuation (Symbicort) 2 puffs inhalation buspirone 10 mg PO BID 90 days carvedilol 6.25 mg PO BID lisinopril 20 mg PO DAILY lorazepam 0.5 mg PO BID PRN lorazepam 0.5 mg PO BID PRN mirtazapine 3.75 - 7.5 mg (0.5 - 1 x 7.5 mg) PO BEDTIME PRN sertraline 100 mg PO DAILY umeclidinium 62.5 mcg/actuation (Incruse Ellipta) 1 inh inhalation DAILY HPI- Psychiatric Chief Complaint: depression HPI Narrative: Patient seen psychiatric follow-up. Patient generally doing well recently helped her sister with a car. Anxiety seems in better control PHQ-9 and ABIGAIL are minimal not elevated. No new medical problems. Patient seems more grounded. She does have close friends has a support Past Psychiatric History: Longstanding history of panic disorder generalized anxiety disorder and history of recurrent depression Has been more stable the past few years Mental Status Exam Mental Status Exam Patient Appearance: Well Grooomed Patient Orientation: Person, Place, Time and Situation Level of Consciousness: Awake and Appropriate Patient Behavior: Appropriate Mood Description: Appropriate Affect Description: Calm, Appropriate and Apprehensive Patient Cognition Impaired: No Ability to Follow Directions: Good Speech Pattern: Clear Memory Description: Intact Hallucinations: None Delusions: Not Present Thought Process: Intact and Goal Oriented Thought Content: positive for Goal Oriented, positive for Preoccupation, negative for Suicidal Ideation or negative for Homicidal Ideation Judgement: Good Judgement and Insight: Able to discuss how to try and avoid being in emotional sponge for her sister's negative thinking ongoing Assessment and Plan Assessment & Plan (1) Panic disorder with agoraphobia: Status: Acute Code(s): F40.01 - Agoraphobia with panic disorder (2) Generalized anxiety disorder: Status: Acute Code(s): F41.1 - Generalized anxiety disorder Plan Continue sertraline lorazepam PRN patient use occasionally and buspirone. Medically stable patient appears more grounded less triggered by family conflict. Assist her chronically negative attitude internally patient tries to keep a boundary and not be drawn in 2 the her sister's internal state. Things seem better between the 2 of them. Medications: Refilled lorazepam 0.5 mg PO BID PRN 45 tabs 1RF anxiety buspirone 10 mg PO BID 180 tabs 1RF 90 days Counseling and coordination of Care Details-Self Mgmt counseling: Issues related to family conflict and patient's strategies for coping Medication management counseling: Effectiveness Diagnosis and Prognosis Counseling: Adequacy of current interventions Details: I spent [30] minutes reviewing the record, seeing the patient and documenting in the medical record. Counseling provided to the patient/caregiver as outlined below. Addressed patient/caregiver concerns regarding current medication regime including effective adherence. Addressed patient/caregiver concerns regarding diagnosis and prognosis including accuracy of diagnosis, prognosis over time, impact of diagnosis. Addressed patient/caregiver concerns regarding impact of recent stressors. 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
== END 2025-01-09 11:51 | disposition home or self-care (01) ==
LOC: HO.HOP 10:49
PROVIDERS: PCP Internal Medicine; Visit Provider Psychiatry & Neurology Psychiatry
DX: F40.01 Agoraphobia with panic disorder (principal); F41.1 Generalized anxiety disorder
CPT/HCPCS: 99214

== ENCOUNTER → 2025-01-09 10:49 | Outpatient (BNVA) | payer MEDICARE, SELFPAY | PROVIDERS: PCP Internal Medicine; Visit Provider Psychiatry & Neurology Psychiatry | DX: F41.1 Generalized anxiety disorder (principal); F40.01 Agoraphobia with panic disorder | CPT/HCPCS: 99212 ==

== ENCOUNTER 2025-04-01 10:57 | Outpatient (AMB) | payer MEDICARE, SELFPAY ==
--- NOTE | 2025-04-01 11:11 | MHC.OFFVISPS ---
Intake Intake Visit Reasons: depression Allergies No Known Allergies Allergy (Verified 09/25/22 13:43) Medication List - Last Reconciled 04/01/25 by Joe Chandler MD atorvastatin 20 mg PO DAILY budesonide-formoterol 160-4.5 mcg/actuation (Symbicort) 2 puffs inhalation buspirone 10 mg PO BID 90 days buspirone 10 mg PO BID 90 days carvedilol 6.25 mg PO BID lisinopril 20 mg PO DAILY lorazepam 0.5 mg PO BID PRN lorazepam 0.5 mg PO BID PRN mirtazapine 3.75 - 7.5 mg (0.5 - 1 x 7.5 mg) PO BEDTIME PRN sertraline 100 mg PO DAILY umeclidinium 62.5 mcg/actuation (Incruse Ellipta) 1 inh inhalation DAILY HPI- Psychiatric Chief Complaint: depression HPI Narrative: Pt seen in f/u mood ok some anxiety re her sister who is going thru bankruptcy sister needs and resents 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 , 11:10 AM (136m) PATIENT SUMMARY: The patient attended the session to discuss ongoing stress and anxiety related to caring for family members and neighbors with significant health challenges, including issues of depression, financial struggles, and complex familial dynamics. HPI: The patient reported feeling overwhelmed and emotionally drained due to multiple family and social responsibilities. The patient described being caught in demanding caregiving roles, including dealing with a sister who is very depressed and undergoing financial difficulties, a neighbor's partner with multiple cancer diagnoses, and a brother caring for a spouse with dementia and Parkinson?s disease. The patient expressed frustration with these roles and concern for the sister's mental health, who has had past episodes of depression and is currently filing for bankruptcy. The patient also expressed feeling obligated to assist a neighbor who requires transportation for medical appointments, which has added to the stress. The patient mentioned crying frequently and feeling shaky due to the cumulative stress. MENT PAIN: The patient did not report any pain during the session. BACKGROUND: The patient did not report any new allergies. The patient was taking several medications, including atorvastatin, carvedilol, lisinopril, and buspirone, and had been prescribed mirtazapine, which the patient had not yet started. The patient mentioned experiencing vertigo in the past. There were no new physical symptoms reported. Past Psychiatric History: Longstanding history of panic disorder generalized anxiety disorder and history of recurrent depression Has been more stable the past few years Mental Status Exam Mental Status Exam Narrative: The patient's mood was described as weepy. The patient also expressed feelings of being overwhelmed and anxious about the current family dynamics and caregiving responsibilities.no si or hi logical goal directed also feeling overwhelmed by responsibility toward an older female neighbor of hers who is living with an alcoholic Assessment and Plan Assessment & Plan (1) Major depressive disorder in partial remission: Status: Acute Code(s): F32.4 - Major depressive disorder, single episode, in partial remission (2) Generalized anxiety disorder: Status: Acute Code(s): F41.1 - Generalized anxiety disorder (3) Panic disorder with agoraphobia: Status: Acute Code(s): F40.01 - Agoraphobia with panic disorder Plan ASSESSMENT: The patient's primary concerns appear related to stress and anxiety from caregiving roles and family dynamics. Generalized Anxiety Disorder (ABIGAIL) The patient's situation is compounded by a lack of engagement in self-care and social activities, leading to increased stress. PLAN: I suggested that the patient might benefit from regular counseling or therapy to help manage stress and develop coping strategies. I recommended the patient consider taking mirtazapine to assist with anxiety and sleep issues. The patient was advised to engage in activities outside caregiving responsibilities to improve mental health, such as participating in social or recreational activities at a senior center. The patient was encouraged to follow up with primary care to ensure all medications are up to date and appropriately managed. A referral for therapy could be arranged upon the patient's request. Follow-up was scheduled for three months, with the option for the patient to reach out sooner if needed. Again recommended regular counseling to deal with stress and family related issues. Medications: Refilled buspirone 10 mg PO BID 180 tabs 1RF 90 days sertraline 100 mg PO DAILY 90 tabs 1RF Counseling and coordination of Care Details: I spent [] minutes reviewing the record, seeing the patient and documenting in the medical record. Counseling provided to the patient/caregiver as outlined below. Addressed patient/caregiver concerns regarding current medication regime including effective adherence. Addressed patient/caregiver concerns regarding diagnosis and prognosis including accuracy of diagnosis, prognosis over time, impact of diagnosis. Addressed patient/caregiver concerns regarding impact of recent stressors. 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
== END 2025-04-01 11:44 | disposition home or self-care (01) ==
LOC: HO.HOP 10:57
PROVIDERS: PCP Internal Medicine; Visit Provider Psychiatry & Neurology Psychiatry
DX: F32.4 Major depressive disorder, single episode, in partial remission (principal); F41.1 Generalized anxiety disorder; F40.01 Agoraphobia with panic disorder
CPT/HCPCS: 90833; 99213

== ENCOUNTER → 2025-04-01 10:57 | Outpatient (BNVA) | payer MEDICARE, SELFPAY | PROVIDERS: PCP Internal Medicine; Visit Provider Psychiatry & Neurology Psychiatry | DX: F32.4 Major depressive disorder, single episode, in partial remission (principal); F41.1 Generalized anxiety disorder; F40.01 Agoraphobia with panic disorder | CPT/HCPCS: 99212 ==